=== PATIENT | female | born 1950 | race Caucasian/White ===

== ENCOUNTER → 2018-12-30 | Day surgery (SDC) | payer MEDICARE ==
[2018-12-29 10:55] LABS: BASOPHILS % 0.5 % (0.0-1.0); EOSINOPHILS # (AUTO) 0.2 (0.0-0.4); EOSINOPHILS % 3.5 % (0.0-6.0); HEMATOCRIT 41.6 % (34.2-44.1); HEMOGLOBIN 14.1 g/dL (12.0-16.0); LYMPHOCYTES # (AUTO) 1.1 (1.0-3.2); LYMPHOCYTES % 16.9 % (18.0-39.1); MEAN CORPUSCULAR HEMOGLOBIN 33.6 pg (28-32); MEAN CORPUSCULAR HGB CONC 33.9 g/dL (31-35); MONOCYTES # (AUTO) 0.5 (0.2-0.8); MONOCYTES % 7.6 % (4.4-11.3); NEUTROPHILS # (AUTO) 4.7 (2.1-6.9); NEUTROPHILS % 71.2 % (38.7-80.0); PLATELET COUNT 254 x10e3/uL (140-360); RED CELL DISTRIBUTION WIDTH 13.9 % (11.7-14.4)
--- NOTE | 2018-12-29 11:17 | Diagnostic Imaging Report ---
EXAM: CHEST 2 VIEWS, PA and lateral DATE: 12/29/2018 Time stamp on exam: 10:52 AM INDICATION: Preoperative COMPARISON: None FINDINGS: LINES/TUBES: None LUNGS: The lungs are hyperexpanded. No consolidations or edema. Prominent nipple shadows are noted. PLEURA: No effusions or pneumothorax. HEART AND MEDIASTINUM: Normal size and contour. BONES AND SOFT TISSUES: Marked scoliosis. IMPRESSION: No acute thoracic abnormality. Signed by: Dr. Taqueria Jaime DO on 12/29/2018 11:14 AM
[~2018-12-30] MED LIST: ACETAMINOPHEN 1000 MG/100 ML IV ONE; BACITRACIN 50,000 UNIT VIAL ONE; CEFAZOLIN SOD 2 GM/D5W 50ML 50 ML IV ONE; DEXAMETHASONE SOD PHOS INJ 4 MG/ML VIAL ONE; EPHEDRINE SULFATE INJ 50 MG/10 ML SYR ONE; FENTANYL CITRATE/PF 100MCG/2 ML INJ ONE; HYDROMORPHONE 2MG/ML 2 MG/ML ML ONE; KETAMINE HCL INJ 50 MG/ML 10 ML VIAL ONE; LIDOCAINE HCL 2% LOCAL INJ 5 ML SDV VIAL INJ ONE; MIDAZOLAM HCL 2 MG/2 ML VIAL ONE; MORPHINE SULFATE INJ 4 MG/ML INJ 1ML ONE; ONDANSETRON HCL INJ 2MG/ML 2ML 2 MG/ML VIAL ONE; PROPOFOL IV EMULSION 10 MG/ML 20 ML VIAL ONE; SEVOFLURANE INHAL SOLN 250 ML PEN BTL ONE; TYLENOL PO
--- OUTSIDE RECORDS SUMMARY | 2018-12-30 06:09 | XMS REPORT ---
Author [facility] Address Unknown Phone Unavailable Care Team Providers Care Wheel Roller Name Role Phone VERNELL MAYORGA Unavailable Unavailable Problems This patient has no known problems. Allergies, Adverse Reactions, Alerts This patient has no known allergies or adverse reactions. Medications This patient has no known medications. Results Test Description Test Time Test Comments Text Results Atomic Results Result Comments CHEST 2 VIEWS 2018-12-29 11:12:00 [facility] [address] [address] Patient Name: PRAVEEN PIERRE MR #: [id number] : 1950 Age/Sex: 68/F Req #: [id number] Adm Physician: Ordered by: VERNELL MAYORGA MD Report #: [id number] Location: OR Room/Bed: Procedure: [id number] DX/CHEST 2 VIEWS Exam Date: Exam Time: REPORT STATUS: Signed EXAM: CHEST 2 VIEWS, PA and lateral DATE: 12/29/2018 Time stamp on exam: 10:52 AM INDICATION: Preoperative COMPARISON: None FINDINGS: LINES/TUBES: None LUNGS: The lungs are hyperexpanded. No consolidations or edema. Prominent nipple shadows are noted. PLEURA: No effusions or pneumothorax. HEART AND MEDIASTINUM: Normal size and contour. BONES AND SOFT TISSUES: Marked scoliosis. IMPRESSION: No acute thoracic abnormality. Signed by: Dr. Desi Jaime DO on 12/29/2018 11:14 AM Dictated By: DESI JAIME DO 1114 Transcribed By: CLYDE on 12/29/18 1114 COPY TO: VERNELL MAYORGA MD
[2018-12-30 11:30] VITALS: BP 145/63
--- NOTE | 2018-12-31 14:26 | Operative Report ---
DATE OF PROCEDURE: December 30, 2018 PREOPERATIVE DIAGNOSIS: Symptomatic hardware, left hip. POSTOPERATIVE DIAGNOSIS: Symptomatic hardware, left hip. PROCEDURE PERFORMED: Removal of left long Gamma nail. FREIGHT CALLER: Toma Barron NP ANESTHESIA: General endotracheal intubation anesthesia. IV FLUIDS: Per the anesthesia record. DESCRIPTION OF PROCEDURE: Ms. Anderson was taken to the operating room and placed in the supine position on the operating table. Following induction of general anesthesia as well as endotracheal intubation the patient's left lower extremity was placed in well-padded longitudinal traction. The right lower extremity was placed in a well-padded lithotomy position. The patient's thigh and flank were prepped and draped in standard surgical fashion. Fluoroscopic evaluation of the patient's leg demonstrated a retained Gamma nail. Compression had occurred at the level of the patient's fracture site, and the barrel of the compression screw was prominent in the lateral hip soft tissues. The case was begun by approaching the patient's distal locking screws. The 2 distal locking screws were removed without difficulty. An approach was then made to the proximal aspect of the hip. The patient's previous incision was used again to approach the injury point for the Gamma nail. This incision was carried through the skin only. Blunt dissection was used to deepen the incision to the level of the tip of the trochanter. Using fluoroscopic guidance, entry point for the nail was identified. The patient was found to have some bony overgrowth into the nail. This was excised. The locking bolt was removed, and the extraction device for the nail was attached to the top of the Gamma nail. The entry point for the compression screw was then identified, and the incision was opened. Dissection was carried to the level of the compression screw. The compression screw was then removed without difficulty. The intramedullary nail was then also removed without difficulty. The wound was copiously irrigated. All wounds were closed in multilayer fashion. Sterile dressings were applied. The patient was then awakened and taken to the post anesthesia care unit in stable condition. Toma Barron acted as anesthesia assistant for this case and was necessary for both prepping and draping of the patient as well as retraction of soft tissues that allowed this case to be successful. Job#: [id number]
== END | disposition home or self-care (01) ==
LOC: OR 06:07
PROVIDERS: ATTEND Specialist
DX: T84.195A Other mechanical complication of internal fixation device of left femur, initial encounter (principal); Y83.1 Surgical operation with implant of artificial internal device as the cause of abnormal reaction of the patient, or of later complication, without mention of misadventure at the time of the procedure; M70.62 Trochanteric bursitis, left hip; F17.210 Nicotine dependence, cigarettes, uncomplicated; Z85.048 Personal history of other malignant neoplasm of rectum, rectosigmoid junction, and anus; Z88.5 Allergy status to narcotic agent; Z88.2 Allergy status to sulfonamides
CPT/HCPCS: 20680; 36415; 71046; 85025; 93005; J0131; J0690; J1100; J1170; J2001; J2250; J2270; J2405; J2704

== ENCOUNTER 2020-03-02 11:50 | Emergency (ER) | payer MEDICARE ==
[~2020-03-02] VITALS: Ht 167.6 cm; Wt 68.9 kg
[~2020-03-02 11:50] MED LIST changes: -ACETAMINOPHEN 1000 MG/100 ML IV ONE; -BACITRACIN 50,000 UNIT VIAL ONE; -CEFAZOLIN SOD 2 GM/D5W 50ML 50 ML IV ONE; -DEXAMETHASONE SOD PHOS INJ 4 MG/ML VIAL ONE; -EPHEDRINE SULFATE INJ 50 MG/10 ML SYR ONE; -FENTANYL CITRATE/PF 100MCG/2 ML INJ ONE; -HYDROMORPHONE 2MG/ML 2 MG/ML ML ONE; -KETAMINE HCL INJ 50 MG/ML 10 ML VIAL ONE; -LIDOCAINE HCL 2% LOCAL INJ 5 ML SDV VIAL INJ ONE; -MIDAZOLAM HCL 2 MG/2 ML VIAL ONE; -MORPHINE SULFATE INJ 4 MG/ML INJ 1ML ONE; -ONDANSETRON HCL INJ 2MG/ML 2ML 2 MG/ML VIAL ONE; -PROPOFOL IV EMULSION 10 MG/ML 20 ML VIAL ONE; -SEVOFLURANE INHAL SOLN 250 ML PEN BTL ONE
--- NOTE | 2020-03-02 13:42 | Diagnostic Imaging Report ---
EXAM: CHEST SINGLE (PORTABLE) DATE: 03/02/2020 12:26 PM INDICATION: Weakness COMPARISON: 12/29/2018 FINDINGS: The trachea is midline. The lungs are symmetrically expanded without evidence for large focal consolidation, pneumothorax, or significant pleural effusion. The cardiomediastinal silhouette and is stable in appearance. The pulmonary vasculature is not engorged. No acute osseous abnormality is identified. The surrounding soft tissues are unremarkable. IMPRESSION: No acute cardiopulmonary process identified. Signed by: Dr. William Merino MD on 03/02/2020 1:39 PM
[2020-03-02 13:44] LABS: BASOPHILS # (AUTO) 0.1 (0.0-0.1); BASOPHILS % 0.7 % (0.0-1.0); EOSINOPHILS % 0.2 % (0.0-6.0); HEMATOCRIT 31.8 % (34.2-44.1); HEMOGLOBIN 11.1 g/dL (12.0-16.0); LYMPHOCYTES # (AUTO) 1.6 (1.0-3.2); LYMPHOCYTES % 18.1 % (18.0-39.1); MEAN CORPUSCULAR HGB CONC 34.9 g/dL (31-35); MEAN CORPUSCULAR VOLUME 100.3 fL (81-99); MONOCYTES # (AUTO) 1.2 (0.2-0.8); MONOCYTES % 13.2 % (4.4-11.3); NEUTROPHILS # (AUTO) 5.4 (2.1-6.9); NEUTROPHILS % 61.3 % (38.7-80.0); PLATELET COUNT 380 x10e3/uL (140-360); RED BLOOD COUNT 3.17 x10e6/uL (3.6-5.1); RED CELL DISTRIBUTION WIDTH 13.5 % (11.7-14.4)
[2020-03-02 13:56] LABS: INR 0.85; PROTHROMBIN TIME 12.1 seconds (11.9-14.5)
[2020-03-02 13:57] LABS: PARTIAL THROMBOPLASTIN TIME 28.4 seconds (23.8-35.5)
[2020-03-02 14:07] LABS: ALANINE AMINOTRANSFERASE 65 IU/L (0-55); ALBUMIN 2.6 g/dL (3.5-5.0); ALBUMIN/GLOBULIN RATIO 0.8 (0.8-2.0); ALKALINE PHOSPHATASE 73 IU/L (40-150); ANION GAP 15.1 mmol/L (8-16); BLOOD UREA NITROGEN 11 mg/dL (7-26); BUN/CREATININE RATIO 17 (6-25); CALCIUM 9.2 mg/dL (8.4-10.2); CARBON DIOXIDE 30 mmol/L (22-29); CHLORIDE 94 mmol/L (98-107); CREATINE KINASE 365 IU/L (29-168); CREATININE, SERUM 0.65 mg/dL (0.57-1.11); EST GLOMERULAR FILTRATION RATE > 60 ML/MIN (60-); GLUCOSE 106 mg/dL (74-118); POTASSIUM 3.1 mmol/L (3.5-5.1); SODIUM 136 mmol/L (136-145)
--- NOTE | 2020-03-02 14:32 | NUR ---
PT. PULLED HER IV OUT AND STARTED GETTING DRESSED.
--- NOTE | 2020-03-02 14:41 | NUR ---
SIGNED AMA FORM AND IS SITTING IN A WHEELCHAIR IN THE LOBBY WAITING FOR HER
--- NOTE | 2020-03-02 14:49 | NUR ---
CLIENT DEISRING TO LEAVE, CALLED AND HE IS COMING TO PICK HER UP. SONDRA MADE DECISION TO DISCHARGE WITH PENDING LABS AND TO HAVE CLIENT SIGN AMA FORM FOR TEST NOT DESIRED BY PATIENT.
[2020-03-02 18:22] LABS: LYMPHOCYTES % (MANUAL) 13 % (19-48); METAMYELOCYTES % (MANUAL) 1 % (0-0); MONOCYTES % (MANUAL) 9 % (3.4-9.0); NEUTROPHILS % (MANUAL) 74 % (40-74); PLATELET ESTIMATE ADEQUATE; PLATELET MORPHOLOGY COMMENT NORMAL; RBC MORPHOLOGY COMMENT NORMAL
== END 2020-03-02 14:51 | disposition home or self-care (01) ==
LOC: ER 11:50
DX: M79.662 Pain in left lower leg (principal); M79.661 Pain in right lower leg; I87.1 Compression of vein; I87.2 Venous insufficiency (chronic) (peripheral); F10.229 Alcohol dependence with intoxication, unspecified; M54.9 Dorsalgia, unspecified; G89.29 Other chronic pain; Z85.828 Personal history of other malignant neoplasm of skin; Z87.891 Personal history of nicotine dependence
CPT/HCPCS: 36415; 71045; 80053; 80320; 82550; 82553; 83880; 84484; 85025; 85610; 85730; 99282

== ENCOUNTER 2020-05-07 17:01 | Inpatient (IN) | payer MEDICARE, OTHER ==
[~2020-05-07] VITALS: Ht 167.6 cm; Wt 68.9 kg
--- OUTSIDE RECORDS SUMMARY | 2020-05-07 17:04 | XMS REPORT | Continuity of Care Document ---
Author Author [facility] t Organization [facility] Address [address] [place] [address] Phone Unavailable Care Team Providers Care Market Research Consultant Name Role Phone CHUCK VU MD PCP LINH LINDQUIST Attphys Unavailable VERNELL MAYORGA Attkala Unavailable Payers Payer Name Policy Type Policy Number Effective Date Expiration Date S ource Medicare A & B [id number] 2003 00:00:00 [facility] Problems Condition Name Condition Details Condition Category Status Onset Date Resolution Date Last Treatment Date Treating Clinician Comments Source Intertrochanteric fracture of left femur Intertrochant antonio fracture of left femur Problem Active 2016-06-12 00:00:00 [facility] Allergies, Adverse Reactions, Alerts Allergy Name Allergy Type Status Severity Reaction(s) Onset Date Inacti ve Date Treating Clinician Comments Source Sulfa (Sulfonamide Antibiotics) Allergy to Substance Active 2016-06-12 00:00:00 [facility] Codeine Allergy to Substance Active 2016-06-12 00:00:00 [facility] codeine DA Active MO 2014-12-07 00:00:00 [facility] Sulfa (Sulfonamide Antibiotics) DA Active U 2014-11-25 00 :00:00 [facility] Medications Ordered Medication Name Filled Medication Name Start Date Stop Da te Current Medication? Ordering Clinician Indication Dosage Frequency Signature (SIG) Comments Components Source Tylenol Tylenol Yes 500 Twice A Day as needed fo r Pain [facility] Procedures This patient has no known procedures. Encounters Start Date/Time End Date/Time Encounter Type [facility] En[facility] ID Source 2020-03-02 11:50:00 2020-03-02 14:51:00 Departed Emergency Room 1 LINH LINDQUIST [facility] [id number] [facility] Results Test Description Test Time Test Comments Results Result Comments Source COMPREHENSIVE METABOLIC PANEL 2020-04-13 07:53:00 Test Item SODIUM (test code = NA) 139 mEq/L 134-147 N POTASSIUM (test code = K) 3.7 mEq/L 3.4-5.0 N CHLORIDE (test code = CL) 108 mEq/L 100-108 N CARBON DIOXIDE (test code = CO2) 22 mEq/L 21-33 N ANION GAP (test code = GAP) 13 0-20 N GLUCOSE (test code = GLU) 78 mg/dL 70-110 N BLOOD UREA NITROGEN (test code = BUN) 4 mg/dL 7-18 L GLOMERULAR FILTRATION RATE (test code = GFR) 158.7 80-90 H Units of measure = ml/min/1.73 m2 CREATININE (test code = CREAT) 0.4 mg/dL 0.6-1.3 L TOTAL PROTEIN (test code = PROT) 6.2 g/dL 6.4-8.2 L ALBUMIN (test code = ALB) 1.90 g/dL 3.4-5.0 L CALCIUM (test code = CA) 7.9 mg/dL 8.0-10.5 L BILIRUBIN TOTAL (test code = BILT) 0.3 MG/DL <1.5 SGOT/AST (test code = AST) 32 IUnit/L 15-37 N SGPT/ALT (test code = ALT) 14 IUnit/L 15-65 L ALKALINE PHOSPHATASE TOTAL (test code = ALKP) 59 IUnit/L 20-125 N [id number] 07:53:00* Test Item Value Reference Range Interpretation Comments MAGNESIUM (test code = MAG) 1.50 mg/dL 1.8-2.4 L CBC W/AUTO [id number] 07:40:00* Test Item Value Reference Range Interpretation Comments WHITE BLOOD CELL (test code = WBC) 6.78 x10 3/uL 4.5-11.0 N RED BLOOD CELL (test code = RBC) 2.33 x10 6/uL 3.54-5.02 L HEMOGLOBIN (test code = HGB) 7.7 g/dL 11.0-15.0 L HEMATOCRIT (test code = HCT) 24.4 % 33.0-45.0 L MEAN CELL VOLUME (test code = MCV) 104.7 fL 81.0-99.0 H MEAN CELL HGB (test code = MCH) 33.0 pg 27.0-33.0 N MEAN CELL HGB CONCETRATION (test code = MCHC) 31.6 g/dL 33.0-37. 0 L RED CELL DISTRIBUTION WIDTH CV (test code = RDW) 14.6 % 11.5- 14.5 H RED CELL DISTRIBUTION WIDTH SD (test code = RDW-SD) 55.8 fL 37 .0-54.0 H PLATELET COUNT (test code = PLT) 370 x10 3/uL 150-400 N MEAN PLATELET VOLUME (test code = MPV) 9.5 fL 7.0-9.0 H NEUTROPHIL % (test code = NT%) 53.5 % 56.0-77.0 L IMMATURE GRANULOCYTE % (test code = IG%) 0.4 % 0.0-2.0 N LYMPHOCYTE % (test code = LY%) 31.6 % 14.0-32.0 N MONOCYTE % (test code = MO%) 10.8 % 4.8-9.0 H EOSINOPHIL % (test code = EO%) 3.4 % 0.3-3.7 N BASOPHIL % (test code = BA%) 0.3 % 0.0-2.0 N NUCLEATED RBC % (test code = NRBC%) 0.0 % 0-0 N NEUTROPHIL # (test code = NT#) 3.63 x10 3/uL 2.0-7.6 N IMMATURE GRANULOCYTE # (test code = IG#) 0.03 x10 3/uL 0.00-0.03 N LYMPHOCYTE # (test code = LY#) 2.14 x10 3/uL 1.0-3.8 N MONOCYTE # (test code = MO#) 0.73 x10 3/uL 0.1-0.8 N EOSINOPHIL # (test code = EO#) 0.23 x10 3/uL 0.0-0.2 H BASOPHIL # (test code = BA#) 0.02 x10 3/uL 0.0-0.2 N NUCLEATED RBC # (test code = NRBC#) 0.00 x10 3/uL 0.0-0.1 N MANUAL DIFF REQUIRED (test code = MDIFF) NO - XR FOOT 3 + V [id number] 15:21:00 FAX: Zuly Santo [phone] [place]: St: ADM FAX: Tad Pfeiffer [phone] Name: PRAVEEN PIERRE [facility] : 1950 Age/S: 69/F [address] [place] [address] Unit #: [id number] Loc: G.3308 [facility] [place] [address] Phys: Zuly Santo Acct: [id number] Dis Date: Status: ADM IN PHONE #: [phone] Exam Date: 04/12/2020 1433 FAX #: [phone] Reason: r/o osteo EXAMS: CPT CODE: [id number] XR FOOT 3 + [place] [address]67 Clinical Indication: Right lower extremity ulcer. Rule out osteomyelitis. Comparison: None available. Impression: R ight foot, 3 views. Large ulcer at the dorsum of the midfoot. No under lying soft tissue gas or cortical dehiscence that would indicate the pre sence of osteomyelitis. No acute fracture or dislocation. SL: [id number] at 1521 Reported and signed by: Refugio Willis M.D. CC: Zuly Santo; Tad Pfeiffer DO Technologist: Vickie Gregorio RT(R) Trnmicaitlyn Date/Time/By: 04/12/2020 (152) : By: [email or web address] Orig Print D/T: S: (0066) PAGE 1 Signed Repo rt - XR CHEST 1 [id number] 07:47:00 FAX: Tad Pfeiffer [phone] [place]: St: ADM FAX: Ruth Ann Ramsay [phone] Name: PRAVEEN PIERRE [facility] : 1950 Age/S: 69/F [address] [place] [address] Unit #: [id number] Loc: G.3308 [facility] [place] [address] Phys: Cristina Torrez NP Acct: [id number] Dis Date: Status: ADM IN PHONE #: [phone] Exam Date: 04/12/2020 0544 FAX #: [phone] Reason: Post Op EXAMS: CPT CODE: [id number] XR CHEST 1 V [id number] Study: - XR CHEST 1 V 04/12/2020 5:00 AM Patient Name: PRAVEEN PIERRE MR: [id number] : 1950; Age: 69 years y/o Female Ordering Physician: RAYA Luna linical Indication: Post Op Comparison: April 09, 2020 x-ray FINDINGS LUNGS: The lungs are clear of consolidation, pleur al effusion, and pneumothorax. Bibasilar linear atelectasis. HEART AND MEDIASTINUM: Normal size heart. LINES: None. OSSEOUS STRUCTURES: No fracture, dislocation, or suspicious focal oss eous lesion. ] Curvature of the thoracic spine. OTHER: None. IMPRESSION: No acute abnormality as above discussed. SL: [id number] El ectronically Signed by Geneva Dial on 04/12/2020 at 0747 Reported and signed by: Kory Dial M.D. CC: Tad Torrez NP Technologist: DIEGO Jacques) Trnscrd Date/Time/By: 04/12/2020 (0747) : By: Luis [email or web address] Orig Print D/T: S: 04/12/2020 (0222) PAGE 1 Signed Report BASIC METABOLIC [id number] 06:15:00* Test Item Value Reference Range Interpretation Comments SODIUM (test code = NA) 139 mEq/L 134-147 N POTASSIUM (test code = K) 3.1 mEq/L 3.4-5.0 L CHLORIDE (test code = CL) 108 mEq/L 100-108 N CARBON DIOXIDE (test code = CO2) 23 mEq/L 21-33 N ANION GAP (test code = GAP) 11 0-20 N GLUCOSE (test code = GLU) 80 mg/dL 70-110 N BLOOD UREA NITROGEN (test code = BUN) 4 mg/dL 7-18 L GLOMERULAR FILTRATION RATE (test code = GFR) 221.2 80-90 H Units of measure = ml/min/1.73 m2 CREATININE (test code = CREAT) 0.3 mg/dL 0.6-1.3 L CALCIUM (test code = CA) 7.7 mg/dL 8.0-10.5 L CBC W/AUTO [id number] 06:15:00* Test Item Value Reference Range Interpretation Comments WHITE BLOOD CELL (test code = WBC) 7.49 x10 3/uL 4.5-11.0 N RED BLOOD CELL (test code = RBC) 2.30 x10 6/uL 3.54-5.02 L HEMOGLOBIN (test code = HGB) 7.8 g/dL 11.0-15.0 L HEMATOCRIT (test code = HCT) 23.9 % 33.0-45.0 L MEAN CELL VOLUME (test code = MCV) 103.9 fL 81.0-99.0 H MEAN CELL HGB (test code = MCH) 33.9 pg 27.0-33.0 H MEAN CELL HGB CONCETRATION (test code = MCHC) 32.6 g/dL 33.0-37. 0 L RED CELL DISTRIBUTION WIDTH CV (test code = RDW) 14.6 % 11.5- 14.5 H RED CELL DISTRIBUTION WIDTH SD (test code = RDW-SD) 54.9 fL 37 .0-54.0 H PLATELET COUNT (test code = PLT) 344 x10 3/uL 150-400 N MEAN PLATELET VOLUME (test code = MPV) 9.1 fL 7.0-9.0 H NEUTROPHIL % (test code = NT%) 62.7 % 56.0-77.0 N IMMATURE GRANULOCYTE % (test code = IG%) 0.4 % 0.0-2.0 N LYMPHOCYTE % (test code = LY%) 26.8 % 14.0-32.0 N MONOCYTE % (test code = MO%) 8.7 % 4.8-9.0 N EOSINOPHIL % (test code = EO%) 1.1 % 0.3-3.7 N BASOPHIL % (test code = BA%) 0.3 % 0.0-2.0 N NUCLEATED RBC % (test code = NRBC%) 0.0 % 0-0 N NEUTROPHIL # (test code = NT#) 4.70 x10 3/uL 2.0-7.6 N IMMATURE GRANULOCYTE # (test code = IG#) 0.03 x10 3/uL 0.00-0.03 N LYMPHOCYTE # (test code = LY#) 2.01 x10 3/uL 1.0-3.8 N MONOCYTE # (test code = MO#) 0.65 x10 3/uL 0.1-0.8 N EOSINOPHIL # (test code = EO#) 0.08 x10 3/uL 0.0-0.2 N BASOPHIL # (test code = BA#) 0.02 x10 3/uL 0.0-0.2 N NUCLEATED RBC # (test code = NRBC#) 0.00 x10 3/uL 0.0-0.1 N MANUAL DIFF REQUIRED (test code = MDIFF) NO [id number] 23:28:00* Test Item Value Reference Range Interpretation Comments PREALBUMIN (test code = PREALB) 11.8 mg/dL 16.0-40.0 L Indication for Test: Malabsorption/MalnutritioVITAMIN D [id number] 23:28:00* Test Item Value Reference Range Interpretation Comments VITAMIN D 25-HYDROXY (test code = VITD25) 54.9 ng/mL 30-100 N Indication for Test: Malabsorption/MalnutritioBASIC METABOLIC [id number] 18:10:00* Test Item Value Reference Range Interpretation Comments SODIUM (test code = NA) 140 mEq/L 134-147 N POTASSIUM (test code = K) 3.5 mEq/L 3.4-5.0 N CHLORIDE (test code = CL) 110 mEq/L 100-108 H CARBON DIOXIDE (test code = CO2) 22 mEq/L 21-33 N ANION GAP (test code = GAP) 12 0-20 N GLUCOSE (test code = GLU) 87 mg/dL 70-110 N BLOOD UREA NITROGEN (test code = BUN) 6 mg/dL 7-18 L GLOMERULAR FILTRATION RATE (test code = GFR) 221.2 80-90 H Units of measure = ml/min/1.73 m2 CREATININE (test code = CREAT) 0.3 mg/dL 0.6-1.3 L CALCIUM (test code = CA) 7.9 mg/dL 8.0-10.5 L BASIC METABOLIC [id number] 18:06:00* Test Item Value Reference Range Interpretation Comments SODIUM (test code = NA) 140 mEq/L 134-147 N POTASSIUM (test code = K) 3.5 mEq/L 3.4-5.0 N CHLORIDE (test code = CL) 110 mEq/L 100-108 H CARBON DIOXIDE (test code = CO2) 22 mEq/L 21-33 N ANION GAP (test code = GAP) 12 0-20 N GLUCOSE (test code = GLU) 87 mg/dL 70-110 N BLOOD UREA NITROGEN (test code = BUN) 6 mg/dL 7-18 L GLOMERULAR FILTRATION RATE (test code = GFR) 80-90 CREATININE (test code = CREAT) mg/dL 0.6-1.3 CALCIUM (test code = CA) 7.9 mg/dL 8.0-10.5 L HGB [id number] 17:55:00* Test Item Value Reference Range Interpretation Comments HEMOGLOBIN (test code = HGB) 8.7 g/dL 11.0-15.0 L HEMATOCRIT (test code = HCT) 27.5 % 33.0-45.0 L - DUP UE ART [id number] 14:39:00 Name: PRAVEEN PIERRE [facility] : 1950 Age/S: 69 / F [address] [place] [address] Unit #: [id number] Loc: [place] [address] Phys: Cristina Torrez NP Acct: [id number] Dis Date: Status: ADM IN PHONE #: [phone] Exam Date: 04/11/2020 1435 FAX #: [phone] Reason: s/p heart cath, cold hand EXAMS: CPT CODE: [id number] [facility] ART UNI/LTD 96720 PROCEDURE: UNILATERAL UPPER EXTREMITY ARTERIAL DOPPLER INDICATION: s/p heart cath, cold hand, right upper extremity; history of lower extremity PAD. COMPARISON: There are no previous relevant studies available for correlation. TECHNIQUE: Duplex imaging of the right upper extremity arteries was performed. FINDINGS: PRESSURES: Not acquired WBI: Multiphasic waveforms in the right subclavian, axillary, brachial, radial and ulnar arteries. IMPRESSION: Normal arterial Doppler. SL: [id number] at 1439 Reported and signed by: Jan Allen M.D. CC: Tad Pfeiffer DO; Cristina Torrez NP Technologist: Justina Bueno RDMS(AB) Trnscb Date/Time: 04/11/2020 (1439) Luis FernandoKWL Orig Print D/T: S: 04/11/2020 (2360) Probe: PAGE 1 Signed Report [id number] 11:54:00* Test Item Value Reference Range Interpretation Comments ACT-ISTAT (test code = ACTI) 202 SEC 74-137 H Performed by certified service car operator at [facility] [id number] 10:58:00* Test Item Value Reference Range Interpretation Comments ACT-ISTAT (test code = ACTI) 230 SEC 74-137 H Performed by certified service car operator at [facility] [id number] 10:20:00* Test Item Value Reference Range Interpretation Comments ACT-ISTAT (test code = ACTI) 197 SEC 74-137 H Performed by certified service car operator at [facility] [id number] 09:33:00* Test Item Value Reference Range Interpretation Comments ACT-ISTAT (test code = ACTI) 219 SEC 74-137 H Performed by certified service car operator at [facility] [id number] 05:18:00* Test Item Value Reference Range Interpretation Comments PREALBUMIN (test code = PREALB) mg/dL 16.0-40.0 Indication for Test: Malabsorption/MalnutritioVITAMIN D [id number] 05:18:00* Test Item Value Reference Range Interpretation Comments VITAMIN D 25-HYDROXY (test code = VITD25) 54.9 ng/mL 30-100 N Indication for Test: Malabsorption/MalnutritioBASIC METABOLIC [id number] 05:11:00* Test Item Value Reference Range Interpretation Comments SODIUM (test code = NA) 138 mEq/L 134-147 N POTASSIUM (test code = K) 3.8 mEq/L 3.4-5.0 N CHLORIDE (test code = CL) 109 mEq/L 100-108 H CARBON DIOXIDE (test code = CO2) 24 mEq/L 21-33 N ANION GAP (test code = GAP) 9 0-20 N GLUCOSE (test code = GLU) 92 mg/dL 70-110 N BLOOD UREA NITROGEN (test code = BUN) 9 mg/dL 7-18 N GLOMERULAR FILTRATION RATE (test code = GFR) 158.7 80-90 H Units of measure = ml/min/1.73 m2 CREATININE (test code = CREAT) 0.4 mg/dL 0.6-1.3 L CALCIUM (test code = CA) 8.7 mg/dL 8.0-10.5 N [id number] 05:11:00* Test Item Value Reference Range Interpretation Comments PREALBUMIN (test code = PREALB) 11.5 mg/dL 16.0-40.0 L PROTHROMBIN [id number] 05:03:00* Test Item Value Reference Range Interpretation Comments PROTHROMBIN TIME PATIENT (test code = PTP) 11.2 SECONDS 9.3-12.9 N INTERNATIONAL NORMAL RATIO (test code = INR) 1.0 0.8-1.2 N TARGET INR BY INDICATION Indication INR1. Prophylaxis of venous thrombosis 2.0 - 3.0 (orthopedic surgery), Prophylaxis of venous thrombosis (other than high-risk surgery), Treatment of Deep Vein Thrombosis/Pulmonary Embolism, Prevention of systemic embolism - Tissue heart valves, Acute Myocardial Infarction (to prevent systemic embolism), Valvular heart disease, Atrial Fibrillation, Bileaflet mechanical valve in aortic position.2. Mechanical prosthetic valves (high risk), 2.5 - 3.5 Presence of Lupus Anticoagulant or Antiphospholipid Antibodies, Prevention of systemic embolism - Acute Myocardial Infarction (to prevent recurrent infarct). THROMBOPLASTIN TIME [id number] 05:03:00* Test Item Value Reference Range Interpretation Comments THROMBOPLASTIN TIME PARTIAL (test code = PTT) 37.7 Seconds 25.0-39. 5 N Therapeutic Range: 50.4 - 88.3 Seconds Effective 03/09/2019 CBC W/AUTO [id number] 04:55:00* Test Item Value Reference Range Interpretation Comments WHITE BLOOD CELL (test code = WBC) 6.57 x10 3/uL 4.5-11.0 N RED BLOOD CELL (test code = RBC) 2.86 x10 6/uL 3.54-5.02 L HEMOGLOBIN (test code = HGB) 9.6 g/dL 11.0-15.0 L HEMATOCRIT (test code = HCT) 29.7 % 33.0-45.0 L MEAN CELL VOLUME (test code = MCV) 103.8 fL 81.0-99.0 H MEAN CELL HGB (test code = MCH) 33.6 pg 27.0-33.0 H MEAN CELL HGB CONCETRATION (test code = MCHC) 32.3 g/dL 33.0-37. 0 L RED CELL DISTRIBUTION WIDTH CV (test code = RDW) 14.4 % 11.5- 14.5 N RED CELL DISTRIBUTION WIDTH SD (test code = RDW-SD) 54.4 fL 37 .0-54.0 H PLATELET COUNT (test code = PLT) 442 x10 3/uL 150-400 H MEAN PLATELET VOLUME (test code = MPV) 8.8 fL 7.0-9.0 N NEUTROPHIL % (test code = NT%) 56.5 % 56.0-77.0 N IMMATURE GRANULOCYTE % (test code = IG%) 0.5 % 0.0-2.0 N LYMPHOCYTE % (test code = LY%) 30.3 % 14.0-32.0 N MONOCYTE % (test code = MO%) 9.4 % 4.8-9.0 H EOSINOPHIL % (test code = EO%) 3.0 % 0.3-3.7 N BASOPHIL % (test code = BA%) 0.3 % 0.0-2.0 N NUCLEATED RBC % (test code = NRBC%) 0.0 % 0-0 N NEUTROPHIL # (test code = NT#) 3.71 x10 3/uL 2.0-7.6 N IMMATURE GRANULOCYTE # (test code = IG#) 0.03 x10 3/uL 0.00-0.03 N LYMPHOCYTE # (test code = LY#) 1.99 x10 3/uL 1.0-3.8 N MONOCYTE # (test code = MO#) 0.62 x10 3/uL 0.1-0.8 N EOSINOPHIL # (test code = EO#) 0.20 x10 3/uL 0.0-0.2 N BASOPHIL # (test code = BA#) 0.02 x10 3/uL 0.0-0.2 N NUCLEATED RBC # (test code = NRBC#) 0.00 x10 3/uL 0.0-0.1 N MANUAL DIFF REQUIRED (test code = MDIFF) NO BASIC METABOLIC [id number] 11:46:00* Test Item Value Reference Range Interpretation Comments SODIUM (test code = NA) 141 mEq/L 134-147 N POTASSIUM (test code = K) 3.7 mEq/L 3.4-5.0 N CHLORIDE (test code = CL) 109 mEq/L 100-108 H CARBON DIOXIDE (test code = CO2) 29 mEq/L 21-33 N ANION GAP (test code = GAP) 7 0-20 N GLUCOSE (test code = GLU) 96 mg/dL 70-110 N BLOOD UREA NITROGEN (test code = BUN) 9 mg/dL 7-18 N GLOMERULAR FILTRATION RATE (test code = GFR) 158.7 80-90 H Units of measure = ml/min/1.73 m2 CREATININE (test code = CREAT) 0.4 mg/dL 0.6-1.3 L CALCIUM (test code = CA) 7.9 mg/dL 8.0-10.5 L CBC W/AUTO [id number] 11:26:00* Test Item Value Reference Range Interpretation Comments WHITE BLOOD CELL (test code = WBC) 7.11 x10 3/uL 4.5-11.0 N RED BLOOD CELL (test code = RBC) 2.76 x10 6/uL 3.54-5.02 L HEMOGLOBIN (test code = HGB) 9.2 g/dL 11.0-15.0 L HEMATOCRIT (test code = HCT) 28.1 % 33.0-45.0 L MEAN CELL VOLUME (test code = MCV) 101.8 fL 81.0-99.0 H MEAN CELL HGB (test code = MCH) 33.3 pg 27.0-33.0 H MEAN CELL HGB CONCETRATION (test code = MCHC) 32.7 g/dL 33.0-37. 0 L RED CELL DISTRIBUTION WIDTH CV (test code = RDW) 14.5 % 11.5- 14.5 N RED CELL DISTRIBUTION WIDTH SD (test code = RDW-SD) 53.4 fL 37 .0-54.0 N PLATELET COUNT (test code = PLT) 393 x10 3/uL 150-400 N MEAN PLATELET VOLUME (test code = MPV) 8.5 fL 7.0-9.0 N NEUTROPHIL % (test code = NT%) 63.5 % 56.0-77.0 N IMMATURE GRANULOCYTE % (test code = IG%) 0.6 % 0.0-2.0 N LYMPHOCYTE % (test code = LY%) 25.0 % 14.0-32.0 N MONOCYTE % (test code = MO%) 9.4 % 4.8-9.0 H EOSINOPHIL % (test code = EO%) 1.1 % 0.3-3.7 N BASOPHIL % (test code = BA%) 0.4 % 0.0-2.0 N NUCLEATED RBC % (test code = NRBC%) 0.0 % 0-0 N NEUTROPHIL # (test code = NT#) 4.51 x10 3/uL 2.0-7.6 N IMMATURE GRANULOCYTE # (test code = IG#) 0.04 x10 3/uL 0.00-0.03 H LYMPHOCYTE # (test code = LY#) 1.78 x10 3/uL 1.0-3.8 N MONOCYTE # (test code = MO#) 0.67 x10 3/uL 0.1-0.8 N EOSINOPHIL # (test code = EO#) 0.08 x10 3/uL 0.0-0.2 N BASOPHIL # (test code = BA#) 0.03 x10 3/uL 0.0-0.2 N NUCLEATED RBC # (test code = NRBC#) 0.00 x10 3/uL 0.0-0.1 N MANUAL DIFF REQUIRED (test code = MDIFF) NO COMPREHENSIVE METABOLIC [id number] 08:28:00* Test Item Value Reference Range Interpretation Comments SODIUM (test code = NA) 140 mEq/L 134-147 N POTASSIUM (test code = K) 3.2 mEq/L 3.4-5.0 L CHLORIDE (test code = CL) 106 mEq/L 100-108 N CARBON DIOXIDE (test code = CO2) 28 mEq/L 21-33 N ANION GAP (test code = GAP) 9 0-20 N GLUCOSE (test code = GLU) 91 mg/dL 70-110 N BLOOD UREA NITROGEN (test code = BUN) 9 mg/dL 7-18 N GLOMERULAR FILTRATION RATE (test code = GFR) 158.7 80-90 H Units of measure = ml/min/1.73 m2 CREATININE (test code = CREAT) 0.4 mg/dL 0.6-1.3 L TOTAL PROTEIN (test code = PROT) 6.9 g/dL 6.4-8.2 N ALBUMIN (test code = ALB) 2.20 g/dL 3.4-5.0 L CALCIUM (test code = CA) 8.3 mg/dL 8.0-10.5 N BILIRUBIN TOTAL (test code = BILT) 0.2 MG/DL <1.5 SGOT/AST (test code = AST) 26 IUnit/L 15-37 N SGPT/ALT (test code = ALT) 18 IUnit/L 15-65 N ALKALINE PHOSPHATASE TOTAL (test code = ALKP) 70 IUnit/L 20-125 N CBC W/AUTO [id number] 07:55:00* Test Item Value Reference Range Interpretation Comments WHITE BLOOD CELL (test code = WBC) 7.90 x10 3/uL 4.5-11.0 N RED BLOOD CELL (test code = RBC) 2.86 x10 6/uL 3.54-5.02 L HEMOGLOBIN (test code = HGB) 9.6 g/dL 11.0-15.0 L HEMATOCRIT (test code = HCT) 29.7 % 33.0-45.0 L MEAN CELL VOLUME (test code = MCV) 103.8 fL 81.0-99.0 H MEAN CELL HGB (test code = MCH) 33.6 pg 27.0-33.0 H MEAN CELL HGB CONCETRATION (test code = MCHC) 32.3 g/dL 33.0-37. 0 L RED CELL DISTRIBUTION WIDTH CV (test code = RDW) 14.4 % 11.5- 14.5 N RED CELL DISTRIBUTION WIDTH SD (test code = RDW-SD) 54.6 fL 37 .0-54.0 H PLATELET COUNT (test code = PLT) 457 x10 3/uL 150-400 H MEAN PLATELET VOLUME (test code = MPV) 9.4 fL 7.0-9.0 H NEUTROPHIL % (test code = NT%) 66.0 % 56.0-77.0 N IMMATURE GRANULOCYTE % (test code = IG%) 0.5 % 0.0-2.0 N LYMPHOCYTE % (test code = LY%) 21.1 % 14.0-32.0 N MONOCYTE % (test code = MO%) 10.6 % 4.8-9.0 H EOSINOPHIL % (test code = EO%) 1.4 % 0.3-3.7 N BASOPHIL % (test code = BA%) 0.4 % 0.0-2.0 N NUCLEATED RBC % (test code = NRBC%) 0.0 % 0-0 N NEUTROPHIL # (test code = NT#) 5.21 x10 3/uL 2.0-7.6 N IMMATURE GRANULOCYTE # (test code = IG#) 0.04 x10 3/uL 0.00-0.03 H LYMPHOCYTE # (test code = LY#) 1.67 x10 3/uL 1.0-3.8 N MONOCYTE # (test code = MO#) 0.84 x10 3/uL 0.1-0.8 H EOSINOPHIL # (test code = EO#) 0.11 x10 3/uL 0.0-0.2 N BASOPHIL # (test code = BA#) 0.03 x10 3/uL 0.0-0.2 N NUCLEATED RBC # (test code = NRBC#) 0.00 x10 3/uL 0.0-0.1 N MANUAL DIFF REQUIRED (test code = MDIFF) NO Novel Coronavirus 01:59:00* Test Item Value Reference Range Interpretation Comments Novel Coronavirus 2019 Inhouse (test code = [id number]) Negative Negative Positive results are indicative of the presence [id number] RNA, clinical correlation with patient historyand other diagnostic information is necessary to determinepatient infection status. Positive results do not rule outbacterial infection or co-infection with other viruses. Negative results do not preclude SARS-CoV-2 infection andshould not be used as the sole basis for patient managementdecisions. Negative results must be combined with otherclinical observations, patient history, and epidemiologicalinformation. Detection of SARS-CoV-2 RNA may be affected bysample collection methods, storage conditions, and/or stageof infection. Viral RNA mutations, vaccinations, antiviraltherapeutics, antibiotics, chemotherapeutic orimmunosuppressant drugs have not been evaluated for effectson detection. Results are for the identification of SARS-CoV-2 RNA usingthe [employer] M2000 System under the FDA Emergency UseAuthorization. The testing is performed by personneltrained in the procedures for the [employer] M2000 moleculardiagnostic SARS-CoV-2 assay in vitro. Testing Criteria: OtherOther: preopPROTHROMBIN [id number] 17:11:00* Test Item Value Reference Range Interpretation Comments PROTHROMBIN TIME PATIENT (test code = PTP) 11.7 SECONDS 9.3-12.9 N INTERNATIONAL NORMAL RATIO (test code = INR) 1.1 0.8-1.2 N TARGET INR BY INDICATION Indication INR1. Prophylaxis of venous thrombosis 2.0 - 3.0 (orthopedic surgery), Prophylaxis of venous thrombosis (other than high-risk surgery), Treatment of Deep Vein Thrombosis/Pulmonary Embolism, Prevention of systemic embolism - Tissue heart valves, Acute Myocardial Infarction (to prevent systemic embolism), Valvular heart disease, Atrial Fibrillation, Bileaflet mechanical valve in aortic position.2. Mechanical prosthetic valves (high risk), 2.5 - 3.5 Presence of Lupus Anticoagulant or Antiphospholipid Antibodies, Prevention of systemic embolism - Acute Myocardial Infarction (to prevent recurrent infarct). THROMBOPLASTIN TIME [id number] 17:11:00* Test Item Value Reference Range Interpretation Comments THROMBOPLASTIN TIME PARTIAL (test code = PTT) 36.9 Seconds 25.0-39. 5 N Therapeutic Range: 50.4 - 88.3 Seconds Effective 03/09/2019 LACTIC [id number] 17:11:00* Test Item Value Reference Range Interpretation Comments LACTIC ACID (test code = LACT) 1.4 mmol/L 0.4-1.9 N - XR CHEST 1 [id number] 17:09:00 FAX: Katherine Osuna MD [phone] [place]: St: REG Name: PRAVEEN PERALES [facility] : 11[birth year]19 51 Age/S: 69/F [address] [place] [address] Unit #: [id number] Loc: [place] [address] Phys: Katherine Osuna MD Acct: [id number] Dis Date: Status: REG ER PHONE #: [phone] Exam Date: 04/09/2020 1701 FAX #: [phone] Reason: preop EXAMS: CPT CODE: [id number] XR CHEST 1 V [id number] Single view chest: H ISTORY: Preoperative clearance. FINDINGS: No comparison. Small ca lcified granuloma left lung base. No active lung infiltrate or pleural fl uid. Mild thoracic spine scoliosis. Heart and mediastinal contours are u nremarkable. IMPRESSION: No acute finding. SL: EG-H at 1709 Reported and signed by: Antonio garcia M.D. CC: Katherine Osuna MD Technologist: Fauzia Denton RT(R) Trnmird Date/Time/By: 04/09/2020 (9842) : By: [email or web address] Orig Print D/T: S: 04/09/2020 (6600) PAGE 1 Signed Report BASIC METABOLIC [id number] 17:07:00* Test Item Value Reference Range Interpretation Comments SODIUM (test code = NA) 138 mEq/L 134-147 N POTASSIUM (test code = K) 3.2 mEq/L 3.4-5.0 L CHLORIDE (test code = CL) 103 mEq/L 100-108 N CARBON DIOXIDE (test code = CO2) 30 mEq/L 21-33 N ANION GAP (test code = GAP) 8 0-20 N GLUCOSE (test code = GLU) 92 mg/dL 70-110 N BLOOD UREA NITROGEN (test code = BUN) 9 mg/dL 7-18 N GLOMERULAR FILTRATION RATE (test code = GFR) 122.7 80-90 H Units of measure = ml/min/1.73 m2 CREATININE (test code = CREAT) 0.5 mg/dL 0.6-1.3 L CALCIUM (test code = CA) 8.4 mg/dL 8.0-10.5 N HEPATIC FUNCTION [id number] 17:07:00* Test Item Value Reference Range Interpretation Comments TOTAL PROTEIN (test code = PROT) 6.9 g/dL 6.4-8.2 N ALBUMIN (test code = ALB) 2.30 g/dL 3.4-5.0 L BILIRUBIN TOTAL (test code = BILT) 0.3 MG/DL <1.5 N BILIRUBIN DIRECT (test code = BILD) 0.10 MG/DL 0.0-0.30 N BILIRUBIN INDIRECT (test code = BILIND) 0.20 MG/DL SGOT/AST (test code = AST) 31 IUnit/L 15-37 N SGPT/ALT (test code = ALT) 21 IUnit/L 15-65 N ALKALINE PHOSPHATASE TOTAL (test code = ALKP) 69 IUnit/L 20-125 N BASIC METABOLIC [id number] 17:03:00* Test Item Value Reference Range Interpretation Comments SODIUM (test code = NA) 138 mEq/L 134-147 N POTASSIUM (test code = K) 3.2 mEq/L 3.4-5.0 L CHLORIDE (test code = CL) 103 mEq/L 100-108 N CARBON DIOXIDE (test code = CO2) 30 mEq/L 21-33 N ANION GAP (test code = GAP) 8 0-20 N GLUCOSE (test code = GLU) 92 mg/dL 70-110 N BLOOD UREA NITROGEN (test code = BUN) 9 mg/dL 7-18 N GLOMERULAR FILTRATION RATE (test code = GFR) 80-90 CREATININE (test code = CREAT) mg/dL 0.6-1.3 CALCIUM (test code = CA) 8.4 mg/dL 8.0-10.5 N HEPATIC FUNCTION [id number] 17:03:00* Test Item Value Reference Range Interpretation Comments TOTAL PROTEIN (test code = PROT) g/dL 6.4-8.2 ALBUMIN (test code = ALB) 2.30 g/dL 3.4-5.0 L BILIRUBIN TOTAL (test code = BILT) MG/DL <1.5 BILIRUBIN DIRECT (test code = BILD) MG/DL 0.0-0.30 SGOT/AST (test code = AST) IUnit/L 15-37 SGPT/ALT (test code = ALT) IUnit/L 15-65 ALKALINE PHOSPHATASE TOTAL (test code = ALKP) IUnit/L 20-125 CBC W/AUTO [id number] 16:50:00* Test Item Value Reference Range Interpretation Comments WHITE BLOOD CELL (test code = WBC) 8.78 x10 3/uL 4.5-11.0 N RED BLOOD CELL (test code = RBC) 3.07 x10 6/uL 3.54-5.02 L HEMOGLOBIN (test code = HGB) 10.3 g/dL 11.0-15.0 L HEMATOCRIT (test code = HCT) 30.8 % 33.0-45.0 L MEAN CELL VOLUME (test code = MCV) 100.3 fL 81.0-99.0 H MEAN CELL HGB (test code = MCH) 33.6 pg 27.0-33.0 H MEAN CELL HGB CONCETRATION (test code = MCHC) 33.4 g/dL 33.0-37. 0 N RED CELL DISTRIBUTION WIDTH CV (test code = RDW) 14.0 % 11.5- 14.5 N RED CELL DISTRIBUTION WIDTH SD (test code = RDW-SD) 51.7 fL 37 .0-54.0 N PLATELET COUNT (test code = PLT) 440 x10 3/uL 150-400 H MEAN PLATELET VOLUME (test code = MPV) 8.5 fL 7.0-9.0 N NEUTROPHIL % (test code = NT%) 56.7 % 56.0-77.0 N IMMATURE GRANULOCYTE % (test code = IG%) 0.7 % 0.0-2.0 N LYMPHOCYTE % (test code = LY%) 31.8 % 14.0-32.0 N MONOCYTE % (test code = MO%) 9.6 % 4.8-9.0 H EOSINOPHIL % (test code = EO%) 0.7 % 0.3-3.7 N BASOPHIL % (test code = BA%) 0.5 % 0.0-2.0 N NUCLEATED RBC % (test code = NRBC%) 0.0 % 0-0 N NEUTROPHIL # (test code = NT#) 4.99 x10 3/uL 2.0-7.6 N IMMATURE GRANULOCYTE # (test code = IG#) 0.06 x10 3/uL 0.00-0.03 H LYMPHOCYTE # (test code = LY#) 2.79 x10 3/uL 1.0-3.8 N MONOCYTE # (test code = MO#) 0.84 x10 3/uL 0.1-0.8 H EOSINOPHIL # (test code = EO#) 0.06 x10 3/uL 0.0-0.2 N BASOPHIL # (test code = BA#) 0.04 x10 3/uL 0.0-0.2 N NUCLEATED RBC # (test code = NRBC#) 0.00 x10 3/uL 0.0-0.1 N MANUAL DIFF REQUIRED (test code = MDIFF) NO - CTA ABD AORTA IF LWEX [id number] 16:06:00 Name: IGNACIOPRAVEENMARIO JACKSON [facility] : 1950 Age/S: 69 / F [address] Unit #: [id number] Loc: [place] [address] Phys: Dragan Bustillos MD Acct: [id number] Dis Date: Status: REG CLI PHONE #: [phone] Exam Date: 04/05/2020 1017 FAX #: [phone] Reason: RT LOWER LEG ULCER, GUILLERMO EDEMA EXAMS: CPT CODE: [id number] [place] [id number] REASON FOR EXAM: RT LOWER LEG ULCER, GUILLERMO EDEMA EXAM ORDER DATE: 04/05/2020 9:25 AM Ordering: Dragan Bustillos MD Attending:Dragan Bustillos MD Location:[facility] PROCEDURE: - CTA ABD AORTA IF LWEX RO COMPARISON: FINDINGS: Axial images of the abdomen and lower extremities runoff were obtained with IV contrast using CT angiogram protocol. Reconstructed sagittal and coronal images from the axial data were provided. Dose modulation, iterative reconstruction, and/or weight based adjustment of the MA/KV was utilized to reduce the radiation dose to as low as reasonably achievable. Maximum intensity pixel, Volume rendered, Surface shaded rendering, and 3D reconstructed images of the abdominal aorta and lower extremities runoff were provided for interpretation. Intravenous contrast: 100c of Omnipaque 370 IMPRESSION: 1. Diffuse severe atherosclerotic disease of the abdominal aorta. 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 2. Right lower extremity: Chronic right common femoral artery occlusion. Patent right SFA and popliteal artery without focal stenosis. 2 vessels runoff in the anterior and posterior tibial a rteries to the right foot. Patent dorsalis pedis artery. 3. Left lower e xtremity: Chronic left common femoral artery occlusion. No focal stenosi s to the left SFA or popliteal artery. 2 vessels runoff in the anterior and posterior tibial arteries to the left foot. Patent dorsalis pedis ar joshua. at 1606 Reported and signed by: Mark Anthony Juarez M.D. PAGE 1 Signed Report (CONTINUED) Name: GUILLERMO PIERRE [facility] : 1950 Age/S: 69 / F [address] Unit #: [id number] Loc: [place] [address] Phys: Dragan Bustillos MD Acct: [id number] Dis Date: Status: REG CLI PHONE #: [phone] Exam Date: 04/05/2020 1017 FAX #: [phone] Reason: RT LOWER LEG ULCER, GUILLERMO EDEMA EXAMS: CPT CODE: [id number] [place] [id number] <Continued> CC: Chuck Vu MD; Dragan Bustillos MD Technologist:Alejandro Rodriguez RT(R),(MR),(CT); CTDI: DLP: Trnscb Date/Time: 04/05/2020 (9282) t.SDR.VTL Orig Print D/T: S: 04/05/2020 (4595) PAGE 2 Signed Report CREATININE W ESTIMATED [id number] 09:19:00* Test Item Value Reference Range Interpretation Comments BEDSIDE CREATININE (test code = CREATBED) mg/dL 0.7-1.3 L GLOMERULAR FILTRATION RATE POC (test code = GFRBED) 159 >6 0 H CREATININE W ESTIMATED [id number] 09:19:00* Test Item Value Reference Range Interpretation Comments BEDSIDE CREATININE (test code = CREATBED) 0.40 mg/dL 0.7-1.3 L GLOMERULAR FILTRATION RATE POC (test code = GFRBED) > 60 >6 0 H Previously reported result: 159 Edited by: LUBNA on 04/05/20:09171104/05/20 0919: GFRBED previously reported as: 159 H BASIC METABOLIC [id number] 06:19:00* Test Item Value Reference Range Interpretation Comments SODIUM (test code = NA) 131 mmol/L 136-145 L POTASSIUM (test code = K) 3.8 mmol/L 3.5-5.1 N CHLORIDE (test code = CL) 96.0 mmol/L 98-107 L CARBON DIOXIDE (test code = CO2) 30.0 mmol/L 21-32 N ANION GAP (test code = GAP) 8.8 10-20 L GLUCOSE (test code = GLU) 90 mg/dL 74-106 N BLOOD UREA NITROGEN (test code = BUN) 8 mg/dL 7-18 N GLOMERULAR FILTRATION RATE (test code = GFR) > 60 mL/min >=60 Estimated GFR by using Modified MDRD formula.Chronic kidney disease is defined as either kidney damageor GFR <60 mL/min/1.73 m2 for >3 months. CREATININE (test code = CREAT) 0.50 mg/dL 0.55-1.02 L Note change in reference range due to change in reagent. BUN/CREATININE RATIO (test code = BUN/CREA) 16.0 10-20 N CALCIUM (test code = CA) 9.0 mg/dL 8.5-10.1 N BASIC METABOLIC [id number] 06:11:00* Test Item Value Reference Range Interpretation Comments SODIUM (test code = NA) 131 mmol/L 136-145 L POTASSIUM (test code = K) 3.8 mmol/L 3.5-5.1 N CHLORIDE (test code = CL) 96.0 mmol/L 98-107 L CARBON DIOXIDE (test code = CO2) mmol/L 21-32 ANION GAP (test code = GAP) 10-20 GLUCOSE (test code = GLU) mg/dL 74-106 BLOOD UREA NITROGEN (test code = BUN) mg/dL 7-18 GLOMERULAR FILTRATION RATE (test code = GFR) mL/min >=60 CREATININE (test code = CREAT) mg/dL 0.55-1.02 BUN/CREATININE RATIO (test code = BUN/CREA) 10-20 CALCIUM (test code = CA) mg/dL 8.5-10.1 CBC W/AUTO [id number] 06:01:00* Test Item Value Reference Range Interpretation Comments WHITE BLOOD CELL (test code = WBC) 9.7 K/mm3 4.5-12.5 N RED BLOOD CELL (test code = RBC) 3.18 mill/mm3 3.7-5.2 L HEMOGLOBIN (test code = HGB) 10.7 gram/dL 11.5-15.5 L HEMATOCRIT (test code = HCT) 31.5 % 36.0-46.0 L MEAN CELL VOLUME (test code = MCV) 99.1 fL 80-98 H MEAN CELL HGB (test code = MCH) 33.6 picogram 27.0-33.0 H MEAN CELL HGB CONCETRATION (test code = MCHC) 34.0 gram/dL 33.0-36. 0 N RED CELL DISTRIBUTION WIDTH (test code = RDW) 12.3 % 11.6-16. 2 N RED CELL DISTRIBUTION WIDTH SD (test code = RDW-SD) 45.1 fL 37 .0-51.0 N PLATELET COUNT (test code = PLT) 371 K/mm3 150-450 N MEAN PLATELET VOLUME (test code = MPV) 9.3 fL 6.7-11.0 N NEUTROPHIL % (test code = NT%) 73.1 % 39.0-69.0 H IMMATURE GRANULOCYTE % (test code = IG%) 0.5 % 0.0-5.0 N LYMPHOCYTE % (test code = LY%) 14.5 % 25.0-55.0 L MONOCYTE % (test code = MO%) 11.0 % 0.0-10.0 H EOSINOPHIL % (test code = EO%) 0.4 % 0.0-5.0 N BASOPHIL % (test code = BA%) 0.5 % 0.0-1.0 N NUCLEATED RBC % (test code = NRBC%) 0.0 % 0-0 N NEUTROPHIL # (test code = NT#) 7.08 K/mm3 1.8-7.7 N IMMATURE GRANULOCYTE # (test code = IG#) 0.05 x10 3/uL 0-0.03 H LYMPHOCYTE # (test code = LY#) 1.41 K/mm3 1.0-5.0 N MONOCYTE # (test code = MO#) 1.07 K/mm3 0-0.8 H EOSINOPHIL # (test code = EO#) 0.04 K/mm3 0.0-0.5 N BASOPHIL # (test code = BA#) 0.05 K/mm3 0.0-0.2 N NUCLEATED RBC # (test code = NRBC#) 0.00 K/mm3 0.0-0.1 N MANUAL DIFF REQUIRED (test code = MDIFF) NO BASIC METABOLIC [id number] 17:15:00* Test Item Value Reference Range Interpretation Comments SODIUM (test code = NA) 132 mmol/L 136-145 L POTASSIUM (test code = K) 5.0 mmol/L 3.5-5.1 N CHLORIDE (test code = CL) 96.0 mmol/L 98-107 L CARBON DIOXIDE (test code = CO2) 28.0 mmol/L 21-32 N ANION GAP (test code = GAP) 13.0 10-20 N GLUCOSE (test code = GLU) 195 mg/dL 74-106 H BLOOD UREA NITROGEN (test code = BUN) 6 mg/dL 7-18 L GLOMERULAR FILTRATION RATE (test code = GFR) > 60 mL/min >=60 Estimated GFR by using Modified MDRD formula.Chronic kidney disease is defined as either kidney damageor GFR <60 mL/min/1.73 m2 for >3 months. CREATININE (test code = CREAT) 0.50 mg/dL 0.55-1.02 L Note change in reference range due to change in reagent. BUN/CREATININE RATIO (test code = BUN/CREA) 12.0 10-20 N CALCIUM (test code = CA) 8.8 mg/dL 8.5-10.1 N BASIC METABOLIC [id number] 17:11:00* Test Item Value Reference Range Interpretation Comments SODIUM (test code = NA) 132 mmol/L 136-145 L POTASSIUM (test code = K) 5.0 mmol/L 3.5-5.1 N CHLORIDE (test code = CL) 96.0 mmol/L 98-107 L CARBON DIOXIDE (test code = CO2) mmol/L 21-32 ANION GAP (test code = GAP) 10-20 GLUCOSE (test code = GLU) mg/dL 74-106 BLOOD UREA NITROGEN (test code = BUN) mg/dL 7-18 GLOMERULAR FILTRATION RATE (test code = GFR) mL/min >=60 CREATININE (test code = CREAT) mg/dL 0.55-1.02 BUN/CREATININE RATIO (test code = BUN/CREA) 10-20 CALCIUM (test code = CA) 8.8 mg/dL 8.5-10.1 N BASIC METABOLIC [id number] 05:42:00* Test Item Value Reference Range Interpretation Comments SODIUM (test code = NA) 128 mmol/L 136-145 L POTASSIUM (test code = K) 3.1 mmol/L 3.5-5.1 L CHLORIDE (test code = CL) 88.0 mmol/L 98-107 L CARBON DIOXIDE (test code = CO2) 32.0 mmol/L 21-32 N ANION GAP (test code = GAP) 11.1 10-20 N GLUCOSE (test code = GLU) 96 mg/dL 74-106 N BLOOD UREA NITROGEN (test code = BUN) 5 mg/dL 7-18 L GLOMERULAR FILTRATION RATE (test code = GFR) > 60 mL/min >=60 Estimated GFR by using Modified MDRD formula.Chronic kidney disease is defined as either kidney damageor GFR <60 mL/min/1.73 m2 for >3 months. CREATININE (test code = CREAT) 0.40 mg/dL 0.55-1.02 L Note change in reference range due to change in reagent. BUN/CREATININE RATIO (test code = BUN/CREA) 12.5 10-20 N CALCIUM (test code = CA) 8.8 mg/dL 8.5-10.1 N BASIC METABOLIC [id number] 05:37:00* Test Item Value Reference Range Interpretation Comments SODIUM (test code = NA) 128 mmol/L 136-145 L POTASSIUM (test code = K) 3.1 mmol/L 3.5-5.1 L CHLORIDE (test code = CL) 88.0 mmol/L 98-107 L CARBON DIOXIDE (test code = CO2) mmol/L 21-32 ANION GAP (test code = GAP) 10-20 GLUCOSE (test code = GLU) mg/dL 74-106 BLOOD UREA NITROGEN (test code = BUN) mg/dL 7-18 GLOMERULAR FILTRATION RATE (test code = GFR) mL/min >=60 CREATININE (test code = CREAT) mg/dL 0.55-1.02 BUN/CREATININE RATIO (test code = BUN/CREA) 10-20 CALCIUM (test code = CA) mg/dL 8.5-10.1 CBC W/AUTO [id number] 05:30:00* Test Item Value Reference Range Interpretation Comments WHITE BLOOD CELL (test code = WBC) 7.1 K/mm3 4.5-12.5 N RED BLOOD CELL (test code = RBC) 3.41 mill/mm3 3.7-5.2 L HEMOGLOBIN (test code = HGB) 11.5 gram/dL 11.5-15.5 N HEMATOCRIT (test code = HCT) 31.6 % 36.0-46.0 L MEAN CELL VOLUME (test code = MCV) 92.7 fL 80-98 N MEAN CELL HGB (test code = MCH) 33.7 picogram 27.0-33.0 H MEAN CELL HGB CONCETRATION (test code = MCHC) 36.4 gram/dL 33.0-36. 0 H RED CELL DISTRIBUTION WIDTH (test code = RDW) 11.9 % 11.6-16. 2 N RED CELL DISTRIBUTION WIDTH SD (test code = RDW-SD) 40.1 fL 37 .0-51.0 N PLATELET COUNT (test code = PLT) 360 K/mm3 150-450 N MEAN PLATELET VOLUME (test code = MPV) 9.5 fL 6.7-11.0 N NEUTROPHIL % (test code = NT%) 70.9 % 39.0-69.0 H IMMATURE GRANULOCYTE % (test code = IG%) 0.7 % 0.0-5.0 N LYMPHOCYTE % (test code = LY%) 14.3 % 25.0-55.0 L MONOCYTE % (test code = MO%) 12.0 % 0.0-10.0 H EOSINOPHIL % (test code = EO%) 1.5 % 0.0-5.0 N BASOPHIL % (test code = BA%) 0.6 % 0.0-1.0 N NUCLEATED RBC % (test code = NRBC%) 0.0 % 0-0 N NEUTROPHIL # (test code = NT#) 5.04 K/mm3 1.8-7.7 N IMMATURE GRANULOCYTE # (test code = IG#) 0.05 x10 3/uL 0-0.03 H LYMPHOCYTE # (test code = LY#) 1.02 K/mm3 1.0-5.0 N MONOCYTE # (test code = MO#) 0.85 K/mm3 0-0.8 H EOSINOPHIL # (test code = EO#) 0.11 K/mm3 0.0-0.5 N BASOPHIL # (test code = BA#) 0.04 K/mm3 0.0-0.2 N NUCLEATED RBC # (test code = NRBC#) 0.00 K/mm3 0.0-0.1 N MANUAL DIFF REQUIRED (test code = MDIFF) NO Coronavirus 2019 nCoV [id number] 17:48:00* Test Item Value Reference Range Interpretation Comments Coronavirus 2019 nCoV Bedside (test code = [id number]) Negative CBC W/AUTO [id number] 16:20:00* Test Item Value Reference Range Interpretation Comments WHITE BLOOD CELL (test code = WBC) 7.6 K/mm3 4.5-12.5 N RED BLOOD CELL (test code = RBC) 3.59 mill/mm3 3.7-5.2 L HEMOGLOBIN (test code = HGB) 12.4 gram/dL 11.5-15.5 N HEMATOCRIT (test code = HCT) 33.8 % 36.0-46.0 L MEAN CELL VOLUME (test code = MCV) 94.2 fL 80-98 N MEAN CELL HGB (test code = MCH) 34.5 picogram 27.0-33.0 H MEAN CELL HGB CONCETRATION (test code = MCHC) 36.7 gram/dL 33.0-36. 0 H RED CELL DISTRIBUTION WIDTH (test code = RDW) 11.8 % 11.6-16. 2 N RED CELL DISTRIBUTION WIDTH SD (test code = RDW-SD) 40.3 fL 37 .0-51.0 N PLATELET COUNT (test code = PLT) 391 K/mm3 150-450 N MEAN PLATELET VOLUME (test code = MPV) 9.4 fL 6.7-11.0 N NEUTROPHIL % (test code = NT%) 66.0 % 39.0-69.0 N IMMATURE GRANULOCYTE % (test code = IG%) 0.5 % 0.0-5.0 N LYMPHOCYTE % (test code = LY%) 18.7 % 25.0-55.0 L MONOCYTE % (test code = MO%) 13.3 % 0.0-10.0 H EOSINOPHIL % (test code = EO%) 0.8 % 0.0-5.0 N BASOPHIL % (test code = BA%) 0.7 % 0.0-1.0 N NUCLEATED RBC % (test code = NRBC%) 0.0 % 0-0 N NEUTROPHIL # (test code = NT#) 5.03 K/mm3 1.8-7.7 N IMMATURE GRANULOCYTE # (test code = IG#) 0.04 x10 3/uL 0-0.03 H LYMPHOCYTE # (test code = LY#) 1.42 K/mm3 1.0-5.0 N MONOCYTE # (test code = MO#) 1.01 K/mm3 0-0.8 H EOSINOPHIL # (test code = EO#) 0.06 K/mm3 0.0-0.5 N BASOPHIL # (test code = BA#) 0.05 K/mm3 0.0-0.2 N NUCLEATED RBC # (test code = NRBC#) 0.00 K/mm3 0.0-0.1 N MANUAL DIFF REQUIRED (test code = MDIFF) NO COMPREHENSIVE METABOLIC [id number] 16:19:00* Test Item Value Reference Range Interpretation Comments SODIUM (test code = NA) 124 mmol/L 136-145 L Resu lts called to [id number] by V.LAB.AR 03/23/20 1616Critical results verified and read back by Nurse? Y POTASSIUM (test code = K) 2.5 mmol/L 3.5-5.1 LL Re sults called to [id number] by V.LAB.AR 03/23/20 1616Critical results verified and read back by Nurse? Y CHLORIDE (test code = CL) 79.0 mmol/L 98-107 L RE SULT VERIFIED BY REPEAT ANALYSIS CARBON DIOXIDE (test code = CO2) 33.0 mmol/L 21-32 H ANION GAP (test code = GAP) 14.5 10-20 N GLUCOSE (test code = GLU) 92 mg/dL 74-106 N BLOOD UREA NITROGEN (test code = BUN) 8 mg/dL 7-18 N GLOMERULAR FILTRATION RATE (test code = GFR) > 60 mL/min >=60 Estimated GFR by using Modified MDRD formula.Chronic kidney disease is defined as either kidney damageor GFR <60 mL/min/1.73 m2 for >3 months. CREATININE (test code = CREAT) 0.50 mg/dL 0.55-1.02 L Note change in reference range due to change in reagent. BUN/CREATININE RATIO (test code = BUN/CREA) 16.0 10-20 N TOTAL PROTEIN (test code = PROT) 7.1 gram/dL 6.4-8.2 N ALBUMIN (test code = ALB) 2.6 g/dL 3.4-5.0 L GLOBULIN (test code = GLOB) 4.5 gram/dL 2.7-4.2 H ALBUMIN/GLOBULIN RATIO (test code = A/G) 0.6 0.75-1.50 L CALCIUM (test code = CA) 9.1 mg/dL 8.5-10.1 N BILIRUBIN TOTAL (test code = BILT) 0.70 mg/dL 0.0-1.0 N SGOT/AST (test code = AST) 22 IUnit/L 15-37 N SGPT/ALT (test code = ALT) 17 IUnit/L 12-78 N ALKALINE PHOSPHATASE TOTAL (test code = ALKP) 89 IUnit/L 45-117 N Note change in reference range due to change in reagent. [id number] 16:19:00* Test Item Value Reference Range Interpretation Comments MAGNESIUM (test code = MAG) 1.4 mg/dL 1.8-2.4 L CBC W/AUTO [id number] 16:13:00* Test Item Value Reference Range Interpretation Comments WHITE BLOOD CELL (test code = WBC) K/mm3 4.5-12.5 RED BLOOD CELL (test code = RBC) mill/mm3 3.7-5.2 HEMOGLOBIN (test code = HGB) 12.4 gram/dL 11.5-15.5 N HEMATOCRIT (test code = HCT) % 36.0-46.0 MEAN CELL VOLUME (test code = MCV) fL 80-98 MEAN CELL HGB (test code = MCH) picogram 27.0-33.0 MEAN CELL HGB CONCETRATION (test code = MCHC) gram/dL 33.0-36. 0 RED CELL DISTRIBUTION WIDTH (test code = RDW) % 11.6-16. 2 RED CELL DISTRIBUTION WIDTH SD (test code = RDW-SD) fL 37 .0-51.0 PLATELET COUNT (test code = PLT) K/mm3 150-450 MEAN PLATELET VOLUME (test code = MPV) fL 6.7-11.0 NEUTROPHIL % (test code = NT%) % 39.0-69.0 IMMATURE GRANULOCYTE % (test code = IG%) % 0.0-5.0 LYMPHOCYTE % (test code = LY%) % 25.0-55.0 MONOCYTE % (test code = MO%) % 0.0-10.0 EOSINOPHIL % (test code = EO%) % 0.0-5.0 BASOPHIL % (test code = BA%) % 0.0-1.0 NEUTROPHIL # (test code = NT#) K/mm3 1.8-7.7 LYMPHOCYTE # (test code = LY#) K/mm3 1.0-5.0 MONOCYTE # (test code = MO#) K/mm3 0-0.8 EOSINOPHIL # (test code = EO#) K/mm3 0.0-0.5 BASOPHIL # (test code = BA#) K/mm3 0.0-0.2 Differential Total Cells [id number] 18:22:00* Test Item Value Reference Range Interpretation Comments Differential Total Cells Counted (test code = Differen tial Total Cells Counted) 100 [facility] ([facility]ual)2020-03-02 18:22:00 * Test Item Value Reference Range Interpretation Comments Neutrophils % (Manual) (test code = 54267-3) 74 40-74 [facility]Lymphocytes % (Manual)2020-03-02 18:22:00 * Test Item Value Reference Range Interpretation Comments Lymphocytes % (Manual) (test code = 737-7) 13 19-48 L [facility]Monocytes % (Manual)2020-03-02 18:22:00* Test Item Value Reference Range Interpretation Comments Monocytes % (Manual) (test code = 744-3) 9 3.4-9.0 [facility]Metamyelocytes %2020-03-02 18:22:00* Test Item Value Reference Range Interpretation Comments Metamyelocytes % (test code = 740-1) 1 0-0 H [facility]bergReactive Bzuhyfgjtxf0091-94-45 18:22:00* Test Item Value Reference Range Interpretation Comments Reactive Lymphocytes (test code = 37578-1) 3 [facility]bergPlatelet [id number] 18:22:00* Test Item Value Reference Range Interpretation Comments Platelet Estimate (test code = 07736-7) ADEQUATE [facility]bergPlatelet Morphology [id number] 18:22:00* Test Item Value Reference Range Interpretation Comments Platelet Morphology Comment (test code = 36965-7) NORMAL [facility]bergRed Cell Morphology [id number] 18:22:00* Test Item Value Reference Range Interpretation Comments Red Cell Morphology Comment (test code = 6742-1) NORMAL [facility]bergEthyl Alcohol Cmuto2986-06-22 14:43:00* Test Item Value Reference Range Interpretation Comments Ethyl Alcohol Level (test code = 5643-2) 42.4 0.0-10.0 H [facility]bergB-Type Natriuretic Whbtdti1953-69-98 14:26:00* Test Item Value Reference Range Interpretation Comments B-Type Natriuretic Peptide (test code = 54684-1) 15.3 0-100 [facility]bergCreatine Kinase [id number] 14:18:00* Test Item Value Reference Range Interpretation Comments Creatine Kinase MB (test code = 87906-9) 1.60 0-5.0 [facility]bergTroponin [id number] 14:18:00* Test Item Value Reference Range Interpretation Comments Troponin I (test code = 27668-2) < 0.001 0-0.300 [facility]bergProthrombin Arme4628-37-91 14:10:00* Test Item Value Reference Range Interpretation Comments Prothrombin Time (test code = 5902-2) 12.1 11.9-14.5 [facility]bergProthromb Time International Ratio 2020-03-02 14:10:00* Test Item Value Reference Range Interpretation Comments Prothromb Time International Ratio (test code = 6301-6) 0.85 Oral Anticoagulant Therapy INR Values:1. Low Intensity Therapy 1.5 - 2.02 . Moderate Intensity Therapy 2.0 - 3.03. High Intensity Therapy(1) 2.5 - 3. 54. High Intensity Therapy(2) 3.0 - 4.05. Panic Value INR > 5.0 [facility]bergActivated Partial Thromboplast Time 2020-03-02 14:10:00* Test Item Value Reference Range Interpretation Comments Activated Partial Thromboplast Time (test code = 32525-5) 28.4 23.8-35.5 [facility] Mcxzx5167-53-73 14:10:00* Test Item Value Reference Range Interpretation Comments Sodium Level (test code = 2951-2) 136 136-145 [facility]bergPotassium Mginp5139-46-45 14:10:00* Test Item Value Reference Range Interpretation Comments Potassium Level (test code = 2823-3) 3.1 3.5-5.1 L [facility]bergChloride Kfokg5444-92-36 14:10:00* Test Item Value Reference Range Interpretation Comments Chloride Level (test code = 2075-0) 94 98-107 L [facility]bergCarbon Dioxide Jmozn1428-52-75 14:10:00* Test Item Value Reference Range Interpretation Comments Carbon Dioxide Level (test code = 2028-9) 30 22-29 H [facility] KlebergAnion Tnb0491-21-19 14:10:00* Test Item Value Reference Range Interpretation Comments Anion Gap (test code = 98735-4) 15.1 8-16 [facility]bergBlood Urea Dxlskwcp2340-70-95 14:10:00* Test Item Value Reference Range Interpretation Comments Blood Urea Nitrogen (test code = 3094-0) 11 7-26 [facility]bergCreatinine2020-04-09 14:10:00* Test Item Value Reference Range Interpretation Comments Creatinine (test code = 2160-0) 0.65 0.57-1.11 [facility]bergBUN/Creatinine Xmpeb1885-78-41 14:10:00* Test Item Value Reference Range Interpretation Comments BUN/Creatinine Ratio (test code = 3097-3) 17 6-25 [facility] KlebergEstimat Glomerular Filtration Rate 2020-03-02 14:10:00* Test Item Value Reference Range Interpretation Comments Estimat Glomerular Filtration Rate (test code = 314156372) > 60 >60 Ranges were taken from the National Kidney Disease Education Program and the [facility] literature.Reference ranges:60 or greater: Eppisi86-10 ( for 3 consecutive months): Chronic kidney disease 15 or less: Kidney failureCH[facility] KlebergGlucose Llbqq4476-61-16 14:10:00* Test Item Value Reference Range Interpretation Comments Glucose Level (test code = IFJ0534) 106 74-118 [facility]bergCalcium Qncyi2412-25-49 14:10:00* Test Item Value Reference Range Interpretation Comments Calcium Level (test code = 37658-1) 9.2 8.4-10.2 [facility] KlebergTotal Hpuleawxe2026-51-58 14:10:00* Test Item Value Reference Range Interpretation Comments Total Bilirubin (test code = 1975-2) 0.3 0.2-1.2 [facility] KlebergAspartate Amino Transf (AST/SGOT) 2020-03-02 14:10:00* Test Item Value Reference Range Interpretation Comments Aspartate Amino Transf (AST/SGOT) (test code = Aspartate Amino Transf (AST/SGOT)) 59 5-34 H [facility] KlebergAlanine Aminotransferase (ALT/SGPT) 2020-03-02 14:10:00* Test Item Value Reference Range Interpretation Comments Alanine Aminotransferase (ALT/SGPT) (test code = 1742-6) 65 0-55 H [facility] KlebergTotal Wpegjiz9429-33-56 14:10:00* Test Item Value Reference Range Interpretation Comments Total Protein (test code = 2885-2) 6.0 6.5-8.1 L [facility] KlebergAlbumin2020-04-09 14:10:00* Test Item Value Reference Range Interpretation Comments Albumin (test code = 1751-7) 2.6 3.5-5.0 L [facility]bergGlobulin2020-04-09 14:10:00* Test Item Value Reference Range Interpretation Comments Globulin (test code = 74915-3) 3.4 2.3-3.5 [facility]bergAlbumin/Globulin Zogmr3344-69-15 14:10:00 * Test Item Value Reference Range Interpretation Comments Albumin/Globulin Ratio (test code = 1759-0) 0.8 0.8-2.0 [facility]bergAlkaline Dolpcseyywm3670-03-03 14:10:00* Test Item Value Reference Range Interpretation Comments Alkaline Phosphatase (test code = 6768-6) 73 40-150 [facility]bergCreatine Unmlvh9815-97-82 14:10:00* Test Item Value Reference Range Interpretation Comments Creatine Kinase (test code = 2157-6) 365 29-168 H [facility] KlebergWhite Blood Enosn1225-16-10 13:48:00* Test Item Value Reference Range Interpretation Comments White Blood Count (test code = 6690-2) 8.80 4.8-10.8 [facility] KlebergRed Blood Emuiy3057-91-88 13:48:00* Test Item Value Reference Range Interpretation Comments Red Blood Count (test code = 789-8) 3.17 3.6-5.1 L [facility]bergHemoglobin2020-04-09 13:48:00* Test Item Value Reference Range Interpretation Comments Hemoglobin (test code = 50352-6) 11.1 12.0-16.0 L [facility]bergHematocrit2020-04-09 13:48:00* Test Item Value Reference Range Interpretation Comments Hematocrit (test code = 4544-3) 31.8 34.2-44.1 L [facility] KlebergMean Corpuscular Fwcixl1453-75-34 13:48:00* Test Item Value Reference Range Interpretation Comments Mean Corpuscular Volume (test code = 787-2) 100.3 81-99 H [facility]bergMean Corpuscular Fqsftkutnb9032-36-01 13:48:00* Test Item Value Reference Range Interpretation Comments Mean Corpuscular Hemoglobin (test code = 785-6) 35.0 28-32 H [facility]bergMean Corpuscular Hemoglobin Concent 2020-03-02 13:48:00* Test Item Value Reference Range Interpretation Comments Mean Corpuscular Hemoglobin Concent (test code = 786-4) 34.9 31-35 [facility]bergRed Cell Distribution Bjpki1544-35-56 13:48:00* Test Item Value Reference Range Interpretation Comments Red Cell Distribution Width (test code = 77928-8) 13.5 11.7 -14.4 [facility] KlebergPlatelet Sepgd5406-17-00 13:48:00* Test Item Value Reference Range Interpretation Comments Platelet Count (test code = 777-3) 380 140-360 H [facility]bergNeutrophils (%) (Auto)2020-03-02 13:48:00 * Test Item Value Reference Range Interpretation Comments Neutrophils (%) (Auto) (test code = 03318-6) 61.3 38.7-80.0 [facility]bergLymphocytes (%) (Auto)2020-03-02 13:48:00 * Test Item Value Reference Range Interpretation Comments Lymphocytes (%) (Auto) (test code = 736-9) 18.1 18.0-39.1 [facility]bergMonocytes (%) (Auto)2020-03-02 13:48:00* Test Item Value Reference Range Interpretation Comments Monocytes (%) (Auto) (test code = 5905-5) 13.2 4.4-11.3 H [facility]bergEosinophils (%) (Auto)2020-03-02 13:48:00 * Test Item Value Reference Range Interpretation Comments Eosinophils (%) (Auto) (test code = 713-8) 0.2 0.0-6.0 [facility]bergBasophils (%) (Auto)2020-03-02 13:48:00* Test Item Value Reference Range Interpretation Comments Basophils (%) (Auto) (test code = 706-2) 0.7 0.0-1.0 [facility] KlebergIM GRANULOCYTES %2020-03-02 13:48:00* Test Item Value Reference Range Interpretation Comments IM GRANULOCYTES % (test code = IM GRANULOCYTES %) 6.5 0.0- 1.0 H [facility]bergNeutrophils # (Auto)2020-03-02 13:48:00* Test Item Value Reference Range Interpretation Comments Neutrophils # (Auto) (test code = 751-8) 5.4 2.1-6.9 [facility] KlebergLymphocytes # (Auto)2020-03-02 13:48:00* Test Item Value Reference Range Interpretation Comments Lymphocytes # (Auto) (test code = 18722-5) 1.6 1.0-3.2 [facility]bergMonocytes # (Auto)2020-03-02 13:48:00* Test Item Value Reference Range Interpretation Comments Monocytes # (Auto) (test code = 742-7) 1.2 0.2-0.8 H [facility]bergEosinophils # (Auto)2020-03-02 13:48:00* Test Item Value Reference Range Interpretation Comments Eosinophils # (Auto) (test code = 711-2) 0.0 0.0-0.4 [facility]bergBasophils # (Auto)2020-03-02 13:48:00* Test Item Value Reference Range Interpretation Comments Basophils # (Auto) (test code = 704-7) 0.1 0.0-0.1 [facility] KlebergAbsolute Immature Granulocyte (auto 2020-03-02 13:48:00* Test Item Value Reference Range Interpretation Comments Absolute Immature Granulocyte (auto (shayla t code = Absolute Immature Granulocyte (auto) 0.57 0-0.1 H [facility] KlebergCHEST SINGLE (PORTABLE)2020-03-02 13:39:00 [facility] [address] [place] [address] Patient Name: PRAVEEN PIERRE MR #: [id number] : 1950 Age/Sex: 69/F Req #: [id number] Adm Physician: Ordered by: LINH LINDQUIST DO Report #: [id number] Location: ER Room/Bed: Procedure: 0409-0 028 DX/CHEST SINGLE (PORTABLE) Exam Date: 03/02/20 E xam Time: 1310 REPORT STATUS: Latasha d EXAM: CHEST SINGLE (PORTABLE) DATE: 03/02/2020 12:26 PM INDICATI ON: Weakness COMPARISON: 12/29/2018 FINDINGS: The trachea is midline. The lungs are symmetrically expanded without evidence for large focal consoli dation, pneumothorax, or significant pleural effusion. The cardiomediastina l silhouette and is stable in appearance. The pulmonary vasculature is not eng orged. No acute osseous abnormality is identified. The surrounding soft tissue s are unremarkable. IMPRESSION: No acute cardiopulmonary process id entified. Signed by: Dr. William Merino MD on 03/02/2020 1:39 PM Dictat ed By: WILLIAM MERINO MD 13 39 Transcribed By: CLYDE on 03/02/20 1339 COPY TO: LINH LINDQUIST D O CHEST 2 [id number] 11:12:00 [place] [address] Patient Name: PRAVEEN PIERRE MR #: [id number] : 1950 Age/Sex: 68/F Req #: [id number] Adm Physician: Ordered by: VERNELL MAYORGA MD Report #: [id number] Location: OR Room/Bed: Procedure: 0205-0 035 DX/CHEST 2 VIEWS Exam Date: Exam Time: REPORT STATUS: Signed EXAM: CHEST 2 VIE WS, PA and lateral DATE: 12/29/2018 Time stamp on exam: 10:52 AM INDICATION: P reoperative COMPARISON: None FINDINGS: LINES/TUBES: None LUNGS: Th e lungs are hyperexpanded. No consolidations or edema. Prominent nipple shadow s are noted. PLEURA: No effusions or pneumothorax. HEART AND MEDIASTI NUM: Normal size and contour. BONES AND SOFT TISSUES: Marked scoliosis. IMPRESSION: No acute thoracic abnormality. Signed by: Dr. Laura Hooks DO on 12/29/2018 11:14 AM Dictated By: DESI HOOKS DO Elec tronically Signed By: DESI HOOKS DO on 12/29/18 1114 Transcribed By: CLYDE on 12/29/18 1114 COPY TO: VERNELL MAYORGA MD
[2020-05-07] MEDS ORDERED: ONDANSETRON HCL INJ 2MG/ML 2ML 2 MG/ML VIAL IV STA (17:33)
[2020-05-07] MEDS ORDERED: VANCOMYCIN 1GM/NS 250 ML 250 ML IV ONE (17:45)
[2020-05-07] MEDS ORDERED: ONDANSETRON HCL INJ 2MG/ML 2ML 2 MG/ML VIAL IV PRN ×2 (17:45→18:00)
[2020-05-07] MEDS ORDERED: SODIUM CHLORIDE 0.9% 1000ML 1,000 ML IV SCH (17:45)
[2020-05-07] MEDS ORDERED: PIPER-TAZ 3.375 GM 50 ML IV ONE (17:45)
[2020-05-07] MEDS ORDERED: MORPHINE SULFATE INJ 4 MG/ML INJ 1ML IV PRN (18:00)
[2020-05-07] MEDS ORDERED: DOCUSATE SODIUM 100 MG CAP PO PRN (18:00)
[2020-05-07] MEDS ORDERED: ACETAMINOPHEN 325 MG TAB PO PRN (18:00)
[2020-05-07 18:20] LABS: BASOPHILS % 0.5 % (0.0-1.0); EOSINOPHILS # (AUTO) 0.1 (0.0-0.4); EOSINOPHILS % 1.4 % (0.0-6.0); HEMATOCRIT 30.1 % (34.2-44.1); HEMOGLOBIN 9.5 g/dL (12.0-16.0); LYMPHOCYTES # (AUTO) 1.8 (1.0-3.2); LYMPHOCYTES % 31.1 % (18.0-39.1); MEAN CORPUSCULAR HEMOGLOBIN 32.5 pg (28-32); MEAN CORPUSCULAR HGB CONC 31.6 g/dL (31-35); MEAN CORPUSCULAR VOLUME 103.1 fL (81-99); MONOCYTES # (AUTO) 0.7 (0.2-0.8); MONOCYTES % 12.8 % (4.4-11.3); NEUTROPHILS # (AUTO) 3.1 (2.1-6.9); NEUTROPHILS % 53.8 % (38.7-80.0); PLATELET COUNT 288 x10e3/uL (140-360); RED BLOOD COUNT 2.92 x10e6/uL (3.6-5.1); RED CELL DISTRIBUTION WIDTH 15.8 % (11.7-14.4)
[2020-05-07 18:28] LABS: INR 0.88; PARTIAL THROMBOPLASTIN TIME 27.6 seconds (23.8-35.5); PROTHROMBIN TIME 12.5 seconds (11.9-14.5)
[2020-05-07 18:35] LABS: ALANINE AMINOTRANSFERASE 7 IU/L (0-55); ALBUMIN 2.3 g/dL (3.5-5.0); ALBUMIN/GLOBULIN RATIO 0.5 (0.8-2.0); ALKALINE PHOSPHATASE 72 IU/L (40-150); ANION GAP 13.4 mmol/L (8-16); BLOOD UREA NITROGEN 7 mg/dL (7-26); BUN/CREATININE RATIO 13 (6-25); CALCIUM 8.4 mg/dL (8.4-10.2); CARBON DIOXIDE 26 mmol/L (22-29); CHLORIDE 104 mmol/L (98-107); CREATINE KINASE 94 IU/L (29-168); CREATININE, SERUM 0.54 mg/dL (0.57-1.11); EST GLOMERULAR FILTRATION RATE > 60 ML/MIN (60-); GLUCOSE 117 mg/dL (74-118); POTASSIUM 3.4 mmol/L (3.5-5.1); SODIUM 140 mmol/L (136-145)
[2020-05-07 18:57] LABS: CHOL/HDL RATIO 1.9 (3.0-3.6)
--- NOTE | 2020-05-07 19:01 | Diagnostic Imaging Report ---
EXAMINATION: CHEST SINGLE (NOT PORTABLE) INDICATION: ^LE CELLULITIS ^[id number] ^[id number] COMPARISON: 03/02/2020. FINDINGS: Lateral most lower right hemithorax was not included. TUBES and LINES: None. LUNGS: Lungs are well inflated. There is mild prominence of the central pulmonary vasculature, consistent with pulmonary venous congestion. PLEURA: Mild blunting of the lateral costophrenic sulci suggesting trace pleural effusions. No pneumothorax. HEART AND MEDIASTINUM: The cardiomediastinal silhouette is unremarkable. BONES AND SOFT TISSUES: No acute osseous lesion. Dextroscoliosis of the thoracic spine. UPPER ABDOMEN: No free air under the diaphragm. IMPRESSION: Mild pulmonary venous congestion. Bilateral trace pleural effusions. Signed by: Dr. Alex Abbott M.D. on 05/07/2020 6:58 PM
[2020-05-07 19:45] VITALS: BP 176/91
--- NOTE | 2020-05-07 19:45 | NUR ---
PATIENT STATES THAT SHE WANTS TO DISCUSS WITH DR. VU HER GABAPENTIN MEDICATION REGIMEN AND THAT SHE WANTS TO GO BACK TO 400MG TID DOESN'T THINK SHE NEEDS THE 800MG, DR VU HAS SAID TO CONTINUE HOME MEDS WHICH WAS COMPLETED PER PATIENT'S RECORDS AND TOLD PATIENT THAT WHEN DR COMES TO SEE HER SHE CAN DISCUSS THE CHANGE WITH HIM AT THAT TIME. PT BP IS HIGH AND WHEN TOLD ABOUT HIGH BP PT STATES SHE'S JUST WORRIED ABOUT WHAT'S GOING TO HAPPEN, AFTER RECHECKING WITHIN AN HOUR BP CAME BACK DOWN BUT WILL NOTIFY DR DURING ROUNDS. WILL CONT TO MONITOR.
[2020-05-07 19:50] VITALS: BP 176/91
[2020-05-07 20:00] VITALS: BP 172/90
[2020-05-07] MEDS: MORPHINE SULFATE 2 MG/ML SYR 1ML IV PRN (20:14)
[2020-05-07] MEDS ORDERED: ZOLPIDEM TARTRATE 5 MG TAB PO PRN (21:00)
[2020-05-07] MEDS: MORPHINE SULFATE 2 MG/ML SYR 1ML IV ONE (22:22)
[2020-05-08] VITALS (8 sets, daily range): BP systolic 128–160; BP diastolic 53–82
[2020-05-08] MEDS: MORPHINE SULFATE 2 MG/ML SYR 1ML IV PRN ×4 (01:01→14:05)
[2020-05-08] MEDS ORDERED: NEURONTIN400 MG PO (01:16)
[2020-05-08] MEDS ORDERED: ASPIRIN CHEW81 MG PO (01:16)
[2020-05-08] MEDS ORDERED: VITAMIN B-650 MG PO (01:17)
[2020-05-08] MEDS ORDERED: THIAMINE H100 MG/1 M IV (01:17)
[2020-05-08] MEDS ORDERED: NEPHRO-VITE TABL1 EA PO (01:17)
[2020-05-08] MEDS ORDERED: PERCOCET 10-321 EACH PO (01:19)
[2020-05-08 01:23] LABS: CLARITY,URINE CLEAR (CLEAR); COLOR,URINE YELLOW (YELLOW); LEUKOCYTE ESTERASE ,URINE SMALL (NEGATIVE); NITRITE,URINE POSITIVE (NEGATIVE)
[2020-05-08 01:24] LABS: BILIRUBIN,URINE NEGATIVE (NEGATIVE); KETONES,URINE NEGATIVE (NEGATIVE); PROTEIN,URINE DIPSTICK NEGATIVE (NEGATIVE); URINE UROBILINOGEN 0.2 mg/dL (0.2 - 1)
[2020-05-08] MEDS ORDERED: ASCORBIC ACID500 MG PO (01:24)
[2020-05-08 01:25] LABS: BACTERIA,URINE MODERATE /HPF; EPITHELIAL CELLS,URINE MODERATE /LPF
[2020-05-08] MEDS ORDERED: CALCIUM + VITA1 EACH (01:27)
[2020-05-08] MEDS ORDERED: B-1100 M1 (01:28)
--- NOTE | 2020-05-08 05:32 | NUR ---
H&P cc: leg wounds HPI: 69yoF, my clinic pt, with hx cigarette use and leg wounds, underwent deep debridemnt and B/L iliac stent placements recently, now with oozing of wound and concerns of infections, admitted for IV antibiotics. 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
[2020-05-08 05:37] LABS: BASOPHILS % 0.2 % (0.0-1.0); EOSINOPHILS # (AUTO) 0.1 (0.0-0.4); EOSINOPHILS % 2.9 % (0.0-6.0); HEMATOCRIT 28.8 % (34.2-44.1); HEMOGLOBIN 8.9 g/dL (12.0-16.0); LYMPHOCYTES # (AUTO) 1.6 (1.0-3.2); LYMPHOCYTES % 35.5 % (18.0-39.1); MEAN CORPUSCULAR HEMOGLOBIN 32.7 pg (28-32); MEAN CORPUSCULAR HGB CONC 30.9 g/dL (31-35); MEAN CORPUSCULAR VOLUME 105.9 fL (81-99); MONOCYTES # (AUTO) 0.7 (0.2-0.8); MONOCYTES % 14.9 % (4.4-11.3); NEUTROPHILS % 46.3 % (38.7-80.0); PLATELET COUNT 263 x10e3/uL (140-360); RED BLOOD COUNT 2.72 x10e6/uL (3.6-5.1); RED CELL DISTRIBUTION WIDTH 15.7 % (11.7-14.4)
[2020-05-08 06:20] LABS: ALANINE AMINOTRANSFERASE 6 IU/L (0-55); ALBUMIN 2.1 g/dL (3.5-5.0); ALBUMIN/GLOBULIN RATIO 0.5 (0.8-2.0); ALKALINE PHOSPHATASE 60 IU/L (40-150); ANION GAP 12.1 mmol/L (8-16); BLOOD UREA NITROGEN 6 mg/dL (7-26); BUN/CREATININE RATIO 11 (6-25); CARBON DIOXIDE 26 mmol/L (22-29); CHLORIDE 103 mmol/L (98-107); CREATININE, SERUM 0.55 mg/dL (0.57-1.11); EST GLOMERULAR FILTRATION RATE > 60 ML/MIN (60-); GLUCOSE 110 mg/dL (74-118); POTASSIUM 3.1 mmol/L (3.5-5.1); SODIUM 138 mmol/L (136-145)
[2020-05-08] MEDS ORDERED: POTASSIUM CHLORIDE 20MEQ/15ML UDC PO STA (06:25)
--- NOTE | 2020-05-08 06:27 | NUR ---
PATIENT'S POTASSIUM LEVEL CAME BACK AT 3.[address] VU AND NOTIFIED WAS ORDERED TO GIVE 60MEQ PO AND THEN RECHECK BMP AT 4PM, ALSO NOTIFIED THAT ASPIRIN WAS ORDERED TWICE SO D/C'D DUPLICATE ORDER AND THAT ONLY HOME MED NOT CONTINUED WAS HER PERCOCET DUE TO HER BEING ON MORPHINE HERE AND HE STATES NO SHE DOESN'T NEED BOTH.
[2020-05-08 06:57] LABS: CREATINE KINASE 71 IU/L (29-168)
--- NOTE | 2020-05-08 08:45 | NUR ---
SOCIAL SERVICE CONSULT FOR SAUCEDO BAGS, PT HAS A LTAC REFERRAL LET CM KNOW.
[2020-05-08] MEDS ORDERED: GABAPENTIN 400 MG CAP PO SCH (09:00)
[2020-05-08] MEDS ORDERED: ASPIRIN 81 MG CHEW TAB PO SCH (09:00)
[2020-05-08] MEDS: ASPIRIN 81 MG CHEW TAB PO SCH (09:56)
[2020-05-08] MEDS: FOLIC ACID/CYANOCOB/PYRIDOXINE TAB PO SCH (09:57)
[2020-05-08] MEDS: THIAMINE HCL 100 MG TAB PO SCH (09:57)
[2020-05-08] MEDS: CLOPIDOGREL BISULFATE 75 MG TAB PO SCH (09:57)
[2020-05-08] MEDS: CHOLECALCIFEROL 400 UNIT TAB PO SCH (09:57)
[2020-05-08] MEDS: ASCORBIC ACID 500 MG TAB PO SCH (09:57)
[2020-05-08] MEDS: GABAPENTIN 400 MG CAP PO SCH ×3 (10:35→21:00)
--- NOTE | 2020-05-08 13:03 | Consultation ---
DATE OF CONSULTATION: 05/08/2020 REASON FOR CONSULTATION: Lower extremity wounds. CHIEF COMPLAINT: Lower extremity wounds. HISTORY OF PRESENT ILLNESS: This is a 69-year-old female, known to practice with history of PVD and severe Venous disease with bilateral wound ulcers ( sequelae of pelvic radiation for cancer ), hypertension, hyperlipidemia, COPD, ex-smoker, history of rectal cancer, and basal skin cancer of the nose. Patient does have progressive worsening of severe venous edema and ulcers in addition to severe PVD all at the pelvic iliacs arteries and veins level. Seen in by vascular surgery in [place] where advised to seek second opinion because of inability to be helped She was seen by vascular surgery and by our service and recently underwent left heart catheterization/peripheral angiogram with intervention 04/13/2020 in which she was noted with mild CAD, 40% left circ, and 30% RCA, peripheral angiogram was done, she underwent bilateral external iliacs, SHIP PURSER and stenting, also atherectomy and SHIP PURSER of the right common femoral and SHIP PURSER and stenting of the left common femoral. 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 Cardiology was consulted. Patient is followed by outpatient wound center PAST MEDICAL HISTORY: Sequelae of pelvic radiation with Severe peripheral Arterial and Venous occlusive vascular disease, status post arterial intervention 04/13/2020 bilateral external iliacs, SHIP PURSER and stenting, also atherectomy and SHIP PURSER of the right common femoral and SHIP PURSER and stenting of the left common femoral. Mild CAD by left heart catheterization 04/13/2020. COPD/ex-smoker, rectal cancer history, and basal skin cancer of nose. PAST SURGICAL HISTORY: Tonsillectomy, tubal ligation left hip 2016, eye surgery, also she had removal of hardware in 2018. She had debridement of her right lower extremity ulcers on 03/24/[address] Koehler. FAMILY HISTORY: Mother at age 68, history of CVA and CAD. Father at age 63 with history of brain tumor. 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 Denies any alcohol use, however, former smoker, quit in 02/2020, she was a half a pack smoker x20 years. ALLERGIES: SULFA, HYDROMORPHONE, AND CODEINE. REVIEW OF SYSTEMS: GENERAL: Denies any fatigue, weakness, fevers, chills, or night sweats. SKIN: No rashes. Positive for lower extremity sores. HEENT: No nausea, vomiting, vision changes, blurred vision, double vision, epistaxis, sore throat, or swollen neck. CARDIAC: Denies any chest pains or palpitations. No orthopnea, PND. Positive for lower extremity edema. Positive for dyspnea on exertion. RESPIRATORY: Denies any shortness of breath. No coughing. No hemoptysis. GI: Reports good appetite. No nausea, vomiting, diarrhea, constipation, melena, tarry or bloody stools. GENITOURINARY: Denies any frequency, urgency, hematuria, dysuria. VASCULAR: Positive lower extremity edema and ulcers. MUSCULOSKELETAL: Positive for muscle weakness, joint pains, back pains, and lower extremity swelling. NEUROLOGIC: Denies any numbness, tingling, paralysis, blackout, or seizures. HEMATOLOGY: Positive for anemia and easy bruising. Denies any bleeding. PHYSICAL EXAMINATION: GENERAL: Height 66 inches. Weight 152 pounds. VITAL SIGNS: Temperature 99.3, pulse 92, blood pressure 136/53, respiratory rate 18, and pulse ox 99% on room air. GENERAL: Appears stated age, chronically ill, in no acute distress. SKIN: Bilateral lower extremity wounds. They are currently wrapped. HEENT: Normocephalic. Pupils are equal and reactive. Extraocular movements intact. Trachea midline. No JVD. No carotid bruit. HEART: Regular rate and rhythm. No murmurs or clicks. PMI is about 5th intercostal space. LUNGS: Bilateral breath sounds. Clear to auscultation. Diminished airway entry. ABDOMEN: Soft, nontender, and nondistended. No organomegaly noted. MUSCULOSKELETAL: Lower extremity weakness and swelling noted. However, legs are wrapped. VASCULAR: +2 radial pulses bilaterally. Unable to access lower extremity pulses due to CHEMA Darryl wrap. NEUROLOGIC: Cranial nerves II through XII seem intact. LABORATORY DATA: White count 4, hemoglobin 8.9, hematocrit 28, and platelets 263. Chemistry; sodium 138, potassium 3.1, chloride 103, bicarb 26, BUN 6, and creatinine 0.5. Troponin less than 0.001. BNP 65, triglycerides 46, total cholesterol 161, LDL 65, and HDL 87. No EKG in chart. ASSESSMENT: 1. Venous ulcers with severe Edema with Occlusive pelvic veins secondary to radiation 2. Peripheral arterial vascular disease with status post intervention 04/13/2020 as described above. 2. Chronic obstructive pulmonary disease. 3. Ex-smoker. 4. Mild coronary artery disease by left heart catheterization 04/13/2020. PLAN: 1. The patient presents to [facility] ER with delayed wound healing. 2. From a cardiac standpoint, we will continue antiplatelet therapy. 3. Recommend wound care consult/evaluation. 4. Continue to monitor the patient and adjust cardiac therapy as course progresses. Thank you very much for this consult. Dictated by Unruly Goldstein NP Luis Bhatt MD DC/NATALIE /[id number] MTDD
--- NOTE | 2020-05-08 14:03 | NUR ---
WOUND CARE CONSULT FOR 69 YO FEMALE HX OF VEINOUS STASIS,PAD MADY 18 ON CONSERVATIVE PUP STATUS AND INTERVENTIONS AND VISCO MATTRESS LABS: WBC-4.42 HGB_8.9 GLUCOSE-110 SKIN ASSESSMENT COMPLETE PATIENT PRESENTS WITH BILATERAL LOWER EXTREMITY EDEMA RIGHT LOWER EXTREMITY WITH ULCERATIONS PRESENT WITH TOTAL MEASUREMENT OF 36CM X15CM X1.5CM RED DULL WOUND BASE WITH LARGE AMOUNTS OF SEROUS DRAINAGE PULSES WEAK BUT NOTED PATIENT REPORTS BEING UNDER CARE AND TREATMENT PLAN OF MD OUTSIDE OF HOSPITAL CURRENTLY USING SILVER ALGINATE WITH ABSORPTIVE TOP LAYER AND WRAPS DOPPLER ORDERED AT BEDSIDE NURSING PRESENT TO REAPPLY DRESSING POST DOPPLER MY RECOMMENDATION IS TO MAINTAIN CURRENT TREATMENT DAILY WITH SILVER ALGINATE AND AVOID COMPRESSION UNTIL DEEMED SAFE ON BASES OF VASCULAR STATUS RECOMMENDATIONS: NURSING TO CONTINUE TO MAINTAIN CONSERVATIVE PUP STATUS AND INTERVENTIONS AND VISCO MATTRESS NURSING TO CONTINUE TO ASSIST PATIENT OUT OF BED FOR MEALS AND MUCH TOLERATED NURSING TO CONTINUE TO ASSIST PATIENT NEEDED WITH MEALS AND NUTRITIONAL SUPPLEMENTS TO ENSURE PROPER REQUIREMENTS FOR HEALING NURSING TO CONTINUE TO OFFLOAD FEET AND HEELS NEEDED WITH PILLOW SUSPENSION WHEN IN BED NURSING TO CLEAN RIGHT LOWER LEG ULCERATIONS WITH NORMAL SALINE DAILY AND APPLY SILVER ALGINATE TO WOUND BASE AND COVER WITH 4X4S AND ABD PADS WRAP WITH CAST PADDING AND LOOSE WRAP TOP LAYER TO SECURE DRESSING MY RECOMMENDATION IS TO MAINTAIN CURRENT TREATMENT DAILY WITH SILVER ALGINATE AND AVOID COMPRESSION UNTIL DEEMED SAFE ON BASES OF VASCULAR STATUS Addendum: 05/08/20 at 1422 by Nabeel Del Valle RN Amended: Links added.
[2020-05-08] MEDS: CEFTRIAXONE SOD 1 GM/NS 50 ML 50 ML IV SCH (14:04)
--- NOTE | 2020-05-08 14:54 | NUR ---
PAST MEDICAL HISTORY: Severe peripheral vascular disease, status post intervention 04/13/2020, mild CAD by left heart catheterization 04/13/2020. COPD/ex-smoker, rectal cancer history, and basal skin cancer of nose. PAST SURGICAL HISTORY: Tonsillectomy, tubal ligation left hip 2017, eye surgery, also she had removal of hardware in 2018. She had debridement of her right lower extremity ulcers on 03/24/[address] Koehler. FAMILY HISTORY: Mother at age 68, history of CVA and CAD. Father at age 63 with history of brain tumor. 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 Denies any alcohol use, however, former smoker, quit in 02/2020, she was a half a pack smoker x20 years. ALLERGIES: SULFA, HYDROMORPHONE, AND CODEINE. REVIEW OF SYSTEMS: GENERAL: Denies any fatigue, weakness, fevers, chills, or night sweats. SKIN: No rashes. Positive for lower extremity sores. HEENT: No nausea, vomiting, vision changes, blurred vision, double vision, epistaxis, sore throat, or swollen neck. CARDIAC: Denies any chest pains or palpitations. No orthopnea, PND. Positive for lower extremity edema. Positive for dyspnea on exertion. RESPIRATORY: Denies any shortness of breath. No coughing. No hemoptysis. GI: Reports good appetite. No nausea, vomiting, diarrhea, constipation, melena, tarry or bloody stools. GENITOURINARY: Denies any frequency, urgency, hematuria, dysuria. [id number]
--- NOTE | 2020-05-08 17:30 | NUR ---
CALLED DR. Gonsalo [facility] DOES NOT CARRY PERCOCET 10/325 AND THEY ONLY CARRY 5/325 RECEIVED ORDERS ORDER PERCOCET 5/325.
[2020-05-08] MEDS: MORPHINE SULFATE INJ 4 MG/ML INJ 1ML IV PRN (18:00)
[2020-05-08] MEDS: VANCOMYCIN 1GM/NS 250 ML 250 ML IV SCH (18:15)
[2020-05-08 18:31] LABS: ANION GAP 13.9 mmol/L (8-16); BLOOD UREA NITROGEN 5 mg/dL (7-26); BUN/CREATININE RATIO 9 (6-25); CALCIUM 8.9 mg/dL (8.4-10.2); CARBON DIOXIDE 24 mmol/L (22-29); CHLORIDE 106 mmol/L (98-107); CREATININE, SERUM 0.56 mg/dL (0.57-1.11); EST GLOMERULAR FILTRATION RATE > 60 ML/MIN (60-); GLUCOSE 83 mg/dL (74-118); POTASSIUM 4.9 mmol/L (3.5-5.1); SODIUM 139 mmol/L (136-145)
[2020-05-08] MEDS: OXYCODONE/ACETAMINOPHEN 5-325 1 EACH TABLET PO PRN (20:06)
--- NOTE | 2020-05-08 20:25 | NUR ---
CALLED DR. Cornelius POON FOR PAIN MANAGEMENT CONSULT CALLED THE ANSWERING SERVICE.
[2020-05-08] MEDS: HEPARIN SOD (PORCINE) 5,000 UNIT/ML VIAL SC SCH (21:00)
--- NOTE | 2020-05-08 21:10 | Consultation ---
DATE OF CONSULTATION: HISTORY OF PRESENT ILLNESS: Ms. Anderson is a 69-year-old white female, history of bilateral lower extremities edema. She states for the last 2 months has been having ulcers on her right leg involving several spots on her legs. She said they came suddenly. The patient has history of peripheral vascular disease, hypertension, hyperlipidemia, and COPD. She smokes up till about a year and a half ago. She has history of rectal cancer and history of basal cell cancer of the nose. She recently underwent left cardiac catheterization with an angiogram with intervention on April 13, 2020. The patient, who had mild coronary artery disease, history of 40% left circ, 30% RCA, peripheral angiogram was done. She underwent bilateral external iliac LAND CLEARER and stenting. The patient comes here because her wound of the leg not getting any better. She is being admitted. She has been seen by wound care as an outpatient, Dr. Kim. The patient has severe peripheral vascular disease as mentioned above. PAST MEDICAL HISTORY: Please refer to the notes in the chart. PAST SURGICAL HISTORY: Please refer to the notes in the chart. SOCIAL HISTORY: Please refer to the notes in the chart. ALLERGIES: PLEASE REFER TO THE NOTES IN THE CHART. PHYSICAL EXAMINATION: GENERAL: Currently alert and oriented. Does not seem to be in acute distress. VITAL SIGNS: Stable, currently afebrile. HEENT: She is normocephalic. Not icteric. NECK: Supple. CHEST: Clear bilaterally. HEART: S1 and S2. No S3, S4, or murmur. ABDOMEN: Soft. Bowel sounds present. No tenderness. EXTREMITIES: The leg, she had several ulcers on dorsal aspect of the foot, 2 of them on the back of the leg, about 4 to 5 cm deep subcutaneous tissue with yellow eschar with some drainage noted on the dressing as well as some erythema around. IMPRESSION: 1. Cellulitis in a patient, who have venous stasis ulcers. I think she has underlying history of lymphedema. Discussed with the patient she would need lymphedema pump, local care, short course of antibiotic would be appropriate. She is going for an LTAC. The plan for her to go to an LTAC, wound care and IV antibiotic. 2. Anemia. 3. Other medical problems as above. I would like to order a CT scan of abdomen and pelvis to rule out any intra-abdominal or pelvic masses in the patient, who has history of cancer. 4. Peripheral vascular disease. Cardiology was consulted. 5. Concern about venous stasis and venous stasis disease. Ordered Doppler of bilateral lower extremities. 6. Ex-smoker, chronic obstructive pulmonary disease. 7. We will follow with you. We will also get a PICC line and start on vancomycin and Rocephin in the meantime. We will follow vancomycin trough. Recheck CBC. Recheck chem panel. Thank you for asking me to see this patient. MD UNIQUE Sorensen/MODL /[id number]
--- NOTE | 2020-05-08 21:53 | Diagnostic Imaging Report ---
EXAMINATION: CHEST XRAY LINE PLACEMENT INDICATION: PICC line insertion, verify position COMPARISON: Chest x-ray 05/07/2020 FINDINGS: TUBES and LINES: New right upper extremity PICC, tip terminates at the superior cavoatrial junction. LUNGS/PLEURA: Normal lung volumes. Left basilar haziness. Obscured left hemidiaphragm. Prominent pulmonary vasculature. HEART AND MEDIASTINUM: The cardiomediastinal silhouette is borderline enlarged. BONES AND SOFT TISSUES: No acute osseous lesion. Soft tissues are unremarkable. Mild spine curvature. UPPER ABDOMEN: No free air under the diaphragm. IMPRESSION: New right upper extremity PICC, tip terminates at the superior cavoatrial junction. Mild cardiomegaly and pulmonary vascular congestion. Left basilar haziness can be due to atelectasis, pleural effusion, or pneumonia. Recommend follow-up chest radiograph in 6-8 weeks. Signed by: Yuan Ac DO on 05/08/2020 9:50 PM
[2020-05-09] VITALS (11 sets, daily range): BP systolic 125–149; BP diastolic 60–78
[2020-05-09] MEDS: MORPHINE SULFATE INJ 4 MG/ML INJ 1ML IV PRN ×2 (00:34→10:03)
[2020-05-09] MEDS: OXYCODONE/ACETAMINOPHEN 5-325 1 EACH TABLET PO PRN ×2 (08:18→15:01)
[2020-05-09] MEDS: HEPARIN SOD (PORCINE) 5,000 UNIT/ML VIAL SC SCH (09:00)
[2020-05-09] MEDS: FOLIC ACID/CYANOCOB/PYRIDOXINE TAB PO SCH (09:51)
[2020-05-09] MEDS: ASPIRIN 81 MG CHEW TAB PO SCH (09:51)
[2020-05-09] MEDS: THIAMINE HCL 100 MG TAB PO SCH (09:52)
[2020-05-09] MEDS: CLOPIDOGREL BISULFATE 75 MG TAB PO SCH (09:52)
[2020-05-09] MEDS: GABAPENTIN 400 MG CAP PO SCH ×3 (09:52→20:38)
[2020-05-09] MEDS: CHOLECALCIFEROL 400 UNIT TAB PO SCH (09:52)
[2020-05-09] MEDS: ASCORBIC ACID 500 MG TAB PO SCH (09:54)
--- NOTE | 2020-05-09 10:00 | NUR ---
Pt refuses wound care today. States wounds done properly yesterday, and not allow legs to be touched.
--- NOTE | 2020-05-09 10:43 | Progress Note ---
DATE: SUBJECTIVE: The patient is seen and evaluated. Available labs and notes reviewed. Discussed with Dr. Bhatt. REVIEW OF SYSTEMS: Complains of bilateral lower extremity edema. She states that the right is worse than the left one and she has deep wounds on the right leg. No nausea, vomiting, fever, chills, chest pain, shortness of breath, headache, rash, or dysuria. PHYSICAL EXAMINATION: VITAL SIGNS: Temperature 99, pulse 94, respiration 18, and blood pressure 137/68. GENERAL: Alert and oriented x3, very pleasant, no acute distress. CV: S1 and S2. CHEST: Equal expansion. Clear to auscultation. No acute distress. ABDOMEN: Soft and nontender. No distention. HEENT: Moist. No pallor. No JVD. EXTREMITIES: Bilateral lower extremities with GETACHEW wrap. I did not take the dressing down since it was done by Wound Care and gauze from the toes all the way to the knees bilaterally. However, I looked at the pictures and there are some necrotic deep venous ulcers on right lower extremities. MEDICATIONS: Medication list reviewed and from ID point of view, she is on vancomycin IV and Rocephin. LABORATORY STUDIES: White count of 4.42, hemoglobin 8.9, and platelet 263. Sodium 139, potassium 4.9, and creatinine 0.56. Coronavirus PCR 05/07, is pending. MICROBIOLOGY: Blood culture 05/07/2020, negative 24 hours. Urine cultures 05/07/2020, is pending. RADIOLOGY STUDIES: The patient just had echo done showing, 65% ejection fraction of left ventricular and pending official reading. The patient also had arterial Doppler of bilateral lower extremities showing possible evidence of significant arterial stenosis on both lower extremities. ASSESSMENT AND PLAN: 1. Cellulitis, bilateral lower extremities. 2. Venous stasis, lower extremities. 3. Venous stasis ulcers, some necrotic. 4. Peripheral vascular disease. 5. Peripheral arterial disease. 6. Ex-smoker. 7. Debility. 8. Continue with antibiotics and continue with the local care. The patient may benefit from lymphedema pump. We continue with short course of antibiotics. Elevate bilateral lower extremities as much as possible. Further management of this patient is based on daily findings on laboratory and physical examination. The patient telling me she is going to another place for wound care. We will discuss with case management. Please refer to chart for more information. Discussed with Dr. Bhatt in detail. Dictated by Abdulaziz Melgar) JUAN R Harman Antonio Bhatt MD /MODL /[id number]
--- NOTE | 2020-05-09 11:09 | NUR ---
Have called and spoken with Stacey at Dr Meneses's office to notify of consult for pain management.
--- NOTE | 2020-05-09 11:29 | NUR ---
IM- progress note O/N see below ROS: no f/c/s/N/V/D/ALEMAN/cp/sob/skin rash/back pain/dizziness/confusion v/s revd PE tired appearing anicteric ns1s2 mod bs soft nt nd no e/t skin dry n. 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
[2020-05-09] MEDS: CEFTRIAXONE SOD 1 GM/NS 50 ML 50 ML IV SCH (14:34)
[2020-05-09] MEDS: VANCOMYCIN 1GM/NS 250 ML 250 ML IV SCH (16:24)
[2020-05-09] MEDS: MORPHINE SULFATE 2 MG/ML SYR 1ML IV PRN ×2 (16:25→20:38)
[2020-05-09] MEDS ORDERED: ENOXAPARIN SOD INJ 40 MG/0.4 ML SYR SC SCH (17:00)
[2020-05-10] VITALS: BP 144/70
[2020-05-10] MEDS: MORPHINE SULFATE 2 MG/ML SYR 1ML IV PRN ×3 (00:40→09:43)
[2020-05-10 04:00] VITALS: BP 119/52
[2020-05-10] MEDS: OXYCODONE/ACETAMINOPHEN 5-325 1 EACH TABLET PO PRN ×2 (04:40→11:28)
[2020-05-10 07:30] VITALS: BP 137/63
--- NOTE | 2020-05-10 09:18 | NUR ---
SPOKE WITH REP, PT WILL BE TRANSFERRED TO [facility] TODAY, LET PT KNOW ANSWERED QUESTIONS AND GAVE JUAN PABLO NUMBER FOR [place]. COMPLETED MOT AND WILL UPDATE WHEN GET ROOM ASSIGNMENT
[2020-05-10] MEDS: ASCORBIC ACID 500 MG TAB PO SCH (09:43)
[2020-05-10] MEDS: GABAPENTIN 400 MG CAP PO SCH (09:43)
[2020-05-10] MEDS: CHOLECALCIFEROL 400 UNIT TAB PO SCH (09:43)
[2020-05-10] MEDS: FOLIC ACID/CYANOCOB/PYRIDOXINE TAB PO SCH (09:43)
[2020-05-10] MEDS: ASPIRIN 81 MG CHEW TAB PO SCH (09:43)
[2020-05-10] MEDS: THIAMINE HCL 100 MG TAB PO SCH (09:43)
[2020-05-10] MEDS: CLOPIDOGREL BISULFATE 75 MG TAB PO SCH (09:43)
--- NOTE | 2020-05-10 10:49 | Progress Note ---
DATE: SUBJECTIVE: The patient is seen and evaluated. Available labs and notes reviewed. Discussed with Dr. Bhatt. REVIEW OF SYSTEMS: Complaining of lower extremity edema, worse today. No nausea, vomiting, fever, chills, chest pain, shortness of breath or cough. PHYSICAL EXAMINATION: VITAL SIGNS: Temperature 98.2, pulse 72, respirations 16, blood pressure 137/63. GENERAL: Alert and oriented x3, ambulatory with the help of a four point walker. CV: S1 and S2. CHEST: Equal expansion. Clear to auscultation. No acute distress. ABDOMEN: Soft, nontender with discomfort. Positive bowel sounds. HEENT: Moist. No pallor. No JVD. EXTREMITIES: Edema bilateral lower extremities all the way to the top part of the thigh and hips. MEDICATIONS: Medication list reviewed. From ID point of view, the patient is on vancomycin IV and Rocephin. LABORATORY STUDIES: White count of 4.42, hemoglobin 8.9, platelet 263 on 05/08/2020 with a creatinine of 0.56. Sodium 139, potassium 4.9. SEROLOGY: Coronavirus PCR not detected on 05/07/2020. MICROBIOLOGY: Blood culture 05/07/2020, negative. Urine culture 05/07/2020 showed E coli, which is sensitive to Rocephin. IMAGING: The patient is status post PICC line placement in the right upper extremity on 05/07/2020. Arterial Doppler bilateral lower extremities done showing patent right common femoral artery, although Doppler velocity is increased, Doppler flow noted in the right lower extremity arteries. The patient has a patent left external iliac/femoral stent with normal triphasic Doppler of the arteries of the left lower extremity. The patient is also status post echo showing left ventricle ejection fraction of 55 to 60% with mild tricuspid regurgitation and mild mitral annular calcification and mild concentric left ventricular hypertrophy. ASSESSMENT AND PLAN: 1. Cellulitis of the lower extremities. 2. Venous stasis, lower extremities. 3. History of lymphedema. 4. Infected venous ulcers of lower extremities. 5. Anemia. 6. Peripheral vascular disease. 7. Ex-smoker. 8. Continue with antibiotics as above. 9. Urinary tract infection. 10. Continue wound care, continue with antibiotics, elevate lower extremities, plan is to transfer to LTAC possibly today. The patient is status post PICC line as mentioned above, follow with the labs and monitor the patient clinically. Discussed with Dr. Bhatt in detail. Please refer to chart for more information. Dictated by Abdulaziz Melgar) JUAN R Harman Antonio Bhatt MD /MODL /[id number]
--- NOTE | 2020-05-10 11:38 | NUR ---
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
--- NOTE | 2020-05-16 09:04 | Emergency Department Note ---
History of Present Illnes History of Present Illness Chief Complaint: General Medicine Complaints History of Present Illness This is a 69 year old female pt, with hx cigarette use and chronic leg wounds, underwent deep debridement and B/L iliac stent placements recently, now with oozing of wound and concern for infection, sent from Dr Chuck Mcgill office Historian: Patient Arrival Mode: Car Additional Treatment PLANNING ENGINEER: n/a Flow Trader Required: No Location: bilat LE's Quality: pain Radiation: Reports non-radiation Severity: moderate Onset quality: gradual Timing of current episode: constant Progression: worsening Chronicity: chronic Context: Reports recent illness, Reports recent surgery Relieving factors: none Exacerbating factors: none Associated symptoms: Reports denies other symptoms Treatments prior to arrival: none Past Medical/Family History Physician Review I have reviewed the patient's past medical and family history. Any updates have been documented here. Past Medical History Recent Fever: No Clinical Suspicion of Infectio: No New/Unexplained Change in Ment: No Past Medical History: Anxiety Other Medical History: DISK COMPRESSIONS IN BACK Past Surgical History: Tubal Ligation Other Surgery: HIP SURGERY X2, TONSILECTOMY AND ADNOIDS REMOVED Social History Smoking Cessation: Former smoker Counseling Performed: No Alcohol Use: None Any Illegal Drug Use: No TB Exposure/Symptoms: No Physically hurt or threatened: No Family History Family history of heart diseas: Yes Other Last Tetanus: UNK Any Pre-Existing Lines (PICC,: No Is patient up to date on immun: No Last Flu: utd Last Pneumovax: utd Review of Systems Review of Systems Constitutional: Reports no symptoms EENTM: Reports no symptoms Cardiovascular: Reports no symptoms Respiratory: Reports no symptoms Gastrointestinal: Reports no symptoms Genitourinary: Reports no symptoms Musculoskeletal: Reports no symptoms Integumentary: Reports as per HPI Neurological: Reports no symptoms Psychological: Reports no symptoms Endocrine: Reports no symptoms Hematological/Lymphatic: Reports no symptoms Physical Exam Related Data Allergies: Coded Allergies: banana (Verified Allergy, Intermediate, 05/08/20) chicken derived (Verified Allergy, Intermediate, 05/08/20) corn (Verified Allergy, Intermediate, 05/08/20) SKIN REACTION Sulfa (Sulfonamide Antibiotics) (Verified Allergy, Unknown, 05/07/20) codeine (Verified Allergy, Unknown, 05/07/20) hydromorphone (Verified Allergy, Unknown, hallucinations, 05/07/20) Uncoded Allergies: CREAM OF WHEAT (Allergy, Intermediate, 05/08/20) Triage Vital Signs Vital Signs Date Time Temp Pulse Resp B/P (MAP) Pulse Ox O2 Delivery O2 Flow Rate FiO2 05/07/20 17:29 99.5 93 18 152/77 97 05/07/20 19:45 Room Air Vital signs reviewed: Yes Physical Exam CONSTITUTIONAL Constitutional: Present other (appears chronically ill, in wheelchair) HENT HENT: Present normocephalic, Present atraumatic, Present oropharynx clear/moist, Present nose normal HENT L/R: Present left ext ear normal, Present right ext ear normal EYES Eyes: Reports PERRL, Reports conjunctivae normal NECK Neck: Present ROM normal PULMONARY Pulmonary: Present effort normal, Present other (decr BS's throughout, no wheezing) CARDIOVASCULAR Cardiovascular: Present regular rhythm, Present heart sounds normal, Present LLE edema, Present RLE edema GASTROINTESTINAL Abdominal: Present soft, Present nontender, Present bowel sounds normal GENITOURINARY Genitourinary: Present exam deferred SKIN Skin: Present other (bilateral LE edema, multiple chronic venous stasis ulcers with oozing of serous discharge but it does have mild malodorous smell) MUSCULOSKELETAL Musculoskeletal: Present ROM normal NEUROLOGICAL Neurological: Present alert, Present oriented x 3, Present no gross motor or sensory deficits PSYCHOLOGICAL Psychological: Present mood/affect normal, Present judgement normal Results Laboratory Result Diagram: 05/08/20 0450 05/08/20 174 Lab results reviewed: Yes Imaging Imaging results reviewed: Yes Impressions Procedure: [id number] DX/CHEST SINGLE (NOT PORTABLE) Exam Date: 05/07/20 Exam Time: 1837 REPORT STATUS: Signed EXAMINATION: CHEST SINGLE (NOT PORTABLE) INDICATION: ^LE CELLULITIS ^[id number] ^[id number] COMPARISON: 03/02/2020. FINDINGS: Lateral most lower right hemithorax was not included. TUBES and LINES: None. LUNGS: Lungs are well inflated. There is mild prominence of the central pulmonary vasculature, consistent with pulmonary venous congestion. PLEURA: Mild blunting of the lateral costophrenic sulci suggesting trace pleural effusions. No pneumothorax. HEART AND MEDIASTINUM: The cardiomediastinal silhouette is unremarkable. BONES AND SOFT TISSUES: No acute osseous lesion. Dextroscoliosis of the thoracic spine. UPPER ABDOMEN: No free air under the diaphragm. IMPRESSION: Mild pulmonary venous congestion. Bilateral trace pleural effusions. Signed by: Dr. Alex Abbott M.D. on 05/07/2020 6:58 PM Assessment & Plan Medical Decision Making MDM chronic LE stasis ulcers now with ? infection - check CBC, CHEM'S, cardiac enzymes, BNP, BLD CX'S, WOUND CX'S, cxr - r/o cellulitis, electrolyte abnl, CHF, hypoalbuminemia, PAD Reassessment Reassessment admit Dr Mcgill Assessment & Plan Final Impression: (1) Cellulitis (2) Venous stasis ulcers (3) PAD (peripheral artery disease) Depart Disposition: ADMITTED Last Vital Signs Date Time Temp Pulse Resp B/P (MAP) Pulse Ox O2 Delivery O2 Flow Rate FiO2 05/10/20 08:00 Room Air 05/10/20 07:30 98.2 82 16 99 05/10/20 07:30 137/63 (87) Home Meds Reported Medications Thiamine HCl (B-1) 100 Mg Tablet 05/08/20 Calcium Carbonate/Vitamin D3 (CALCIUM + VITAMIN D TABLET) 1 Each Tablet 05/08/20 Ascorbic Acid (ASCORBIC ACID) 500 Mg Tablet, 500 MG PO DAILY, #30 TAB 05/08/20 Oxycodone Hcl/Acetaminophen (PERCOCET 10-325 MG TABLET) 1 Each Tablet, 1 TAB PO BID PRN for MODERATE PAIN (4-6), TAB 05/08/20 Folic Acid/Cyanocob/Pyridoxine (NEPHRO-ANTELOM TABLET) 1 Ea Tab, 1 EACH PO DAILY, #30 TAB 05/08/20 Pyridoxine Hcl (VITAMIN B-6) 50 Mg Tablet, PO 05/08/20 Gabapentin (NEURONTIN) 400 Mg Capsule, 800 MG PO TID, CAP 05/08/20 Aspirin (ASPIRIN CHEW) 81 Mg Chew, 81 MG PO DAILY, #30 TAB 05/08/20 [Tylenol] No Conflict Check, 500 MG PO BID PRN for PAIN 12/29/18 MICHEAL HOYOS MD May 16, 2020 09:04
== END 2020-05-10 13:10 | DRG 300 ==
LOC: ER 17:01 → ERHOLD 17:44 → IMCU 18:00
PROVIDERS: ADMIT Internal Medicine; ATTEND Internal Medicine
PROC: 02HV33Z Insertion of Infusion Device into Superior Vena Cava, Percutaneous Approach (ICD-10-PCS; principal; 2020-05-08)
PROC: B548ZZA Ultrasonography of Superior Vena Cava, Guidance (ICD-10-PCS; 2020-05-08)
DX: I83.218 Varicose veins of right lower extremity with both ulcer of other part of lower extremity and inflammation (principal); L03.116 Cellulitis of left lower limb; N39.0 Urinary tract infection, site not specified; I74.3 Embolism and thrombosis of arteries of the lower extremities; I74.5 Embolism and thrombosis of iliac artery; L97.811 Non-pressure chronic ulcer of other part of right lower leg limited to breakdown of skin; L97.821 Non-pressure chronic ulcer of other part of left lower leg limited to breakdown of skin; L03.115 Cellulitis of right lower limb; I83.228 Varicose veins of left lower extremity with both ulcer of other part of lower extremity and inflammation; I73.9 Peripheral vascular disease, unspecified; R60.9 Edema, unspecified; Z95.820 Peripheral vascular angioplasty status with implants and grafts; Z87.891 Personal history of nicotine dependence; Z88.5 Allergy status to narcotic agent; Z88.2 Allergy status to sulfonamides; Z91.018 Allergy to other foods; E87.6 Hypokalemia; Z85.048 Personal history of other malignant neoplasm of rectum, rectosigmoid junction, and anus; M54.9 Dorsalgia, unspecified; I10 Essential (primary) hypertension; E78.5 Hyperlipidemia, unspecified; J44.9 Chronic obstructive pulmonary disease, unspecified; Z85.828 Personal history of other malignant neoplasm of skin; I25.10 Atherosclerotic heart disease of native coronary artery without angina pectoris; T66.XXXS Radiation sickness, unspecified, sequela; D64.9 Anemia, unspecified; R53.81 Other malaise; Z11.59 Encounter for screening for other viral diseases; B96.20 Unspecified Escherichia coli [E. coli] as the cause of diseases classified elsewhere
CPT/HCPCS: 36415; 36569; 71045; 74470; 80048; 80053; 80061; 81001; 82550; 82553; 83880; 84484; 85025; 85610; 85651; 85730; 86140; 87040; 87086; 87186; 87635; 93005; 93306; 93925; 99251; 99283; J0696; J1644; J1650; J2270; J2405; J2543; J3370; J3411; J7030

== ENCOUNTER → 2022-05-17 | Outpatient (CLI) | payer MEDICARE ==
[~2022-05-17] MED LIST changes: +ASCORBIC ACID500 MG PO; +ASPIRIN CHEW81 MG PO; +B-1100 M1; +CALCIUM + VITA1 EACH; +NEPHRO-VITE TABL1 EA PO; +NEURONTIN400 MG PO; +PERCOCET 10-321 EACH PO; +THIAMINE H100 MG/1 M IV; +VITAMIN B-650 MG PO
== END ==
LOC: DX 12:12
PROVIDERS: ATTEND Registered Nurse
DX: Z01.818 Encounter for other preprocedural examination (principal); G90.529 Complex regional pain syndrome I of unspecified lower limb; G89.4 Chronic pain syndrome
CPT/HCPCS: 71046